=== PATIENT | male | born 1935 | race Two or more races ===

== ENCOUNTER 2017-07-06 07:29 | Inpatient (IN) | payer MEDICARE, OTHER ==
[~2017-07-06] VITALS: Ht 172.7 cm; Wt 70.9 kg
[2017-07-06 08:05] LABS: Basophils # (auto) 0 uL; Basophils % (auto) 0.6 % (0.0-2.0); Eosinophils # (auto) 0.1 uL; Eosinophils % (auto) 2.1 % (0.0-7.0); Hematocrit 36.4 % (41.0-53.0); Hemoglobin 12.3 g/dL (13.5-17.5); Lymphocytes # (auto) 0.9 uL; Mean Corpuscular Hemoglobin 32.8 pg (28.0-32.0); Mean Corpuscular Hgb Conc. 33.8 g/dL (32.0-36.0); Mean Corpuscular Volume 97.3 fL (80.0-100.0); Monocytes # (auto) 0.4 uL; Monocytes % (auto) 7.8 % (0.0-12.0); Neutrophils % (auto) 73.5 % (37.0-80.0); Nucleated Red Blood Cells % 0.1 %; Platelet Count (auto) 163 10^3/uL (140-450); Red Blood Cells 3.75 10^6/uL (4.5-5.90); Red Cell Distribution Width 13.8 % (11.8-14.3); White Blood Cell 5.4 10^3/uL (4.4-10.8)
[2017-07-06 08:11] LABS: INR 1.08 (0.9-1.15); Prothrombin Time 11.8 sec (9.37-12.3)
[2017-07-06 08:14] LABS: Alanine Aminotransferase 42 U/L (16-61); Albumin 3.6 g/dL (3.4-5.0); Anion Gap 10 (5-15); Aspartate Aminotransferase 32 U/L (15-37); BUN/Creatinine Ratio 15.8; Bilirubin, Total 0.5 mg/dL (0.2-1.0); Blood Alcohol < 3.0 mg/dL (0-5); Blood Urea Nitrogen 29 mg/dL (7-18); Calcium 9.1 mg/dL (8.5-10.1); Carbon Dioxide 24 mmol/L (21-32); Chloride 105 mmol/L (98-107); GFR African American 46 mL/min; GFR Non-African American 38 mL/min; Glucose 78 mg/dL (74-106); Sodium 139 mmol/L (136-145); Total Protein 7.2 g/dL (6.4-8.2)
[2017-07-06 08:17] LABS: Alkaline Phosphatase 95 U/L (45-117)
[2017-07-06] MEDS ORDERED: cloNIDine HCL 0.1 MG TAB PO PRN (11:00)
[2017-07-06] MEDS ORDERED: NIFEdipine ER 30 MG TAB PO ONE (11:00)
[2017-07-06] MEDS ORDERED: FUROSEMIDE 20 MG TAB PO ONE (11:00)
[2017-07-06] MEDS ORDERED: POTASSIUM CHLORIDE 8 MEQ TAB PO ONE (11:00)
[2017-07-06] MEDS ORDERED: LISINOPRIL 5 MG TAB PO ONE (11:00)
[2017-07-06] MEDS ORDERED: ACETAMINOPHEN 325 MG TAB PO PRN ×2 (11:15)
[2017-07-06] MEDS ORDERED: MORPHINE SULFATE 4 MG/ML SYR/VIAL IV PRN (11:15)
[2017-07-06] MEDS ORDERED: ASPirin-EC 81 mg tab PO ONE (11:15)
[2017-07-06] MEDS ORDERED: ONDANSETRON HCL 4 MG/2 ML VIAL IV PRN (11:15)
[2017-07-06] MEDS ORDERED: DOCUSATE SOD 100 MG CAP PO PRN (11:15)
[2017-07-06] MEDS ORDERED: LORazepam 2MG/ML-1ML VIAL ONE (12:10)
[2017-07-06] MEDS ORDERED: HALOPERIDOL 1 MG TAB PO PRN (12:30)
[2017-07-06] MEDS ORDERED: LORazepam 2MG/ML-1ML VIAL IV PRN ×2 (12:30→19:30)
[2017-07-06] MEDS: SODIUM CHLOR 0.9% PF (SALINE LOCK) 10ML VIAL IV SCH ×2 (14:04→22:02)
[2017-07-06 19:09] LABS: Urine Bacteria NONE SEEN /hpf (None Seen); Urine Blood Negative /uL (Negative); Urine Mucus FEW (None Seen); Urine Specific Gravity 1.013 (1.001-1.035); Urine WBC 1 /hpf (0 - 3)
[2017-07-06 20:03] LABS: Alcohol, Urine < 3.0 mg/dL (0-5); Amphetamine Screen, Urine NEGATIVE (NEGATIVE); Barbiturate Scree,Urine NEGATIVE (NEGATIVE); Benzodiazephine Screen, Urine NEGATIVE (NEGATIVE); Cannabinoid Screen, Urine NEGATIVE (NEGATIVE); Cocaine Screen, Urine NEGATIVE (NEGATIVE); Opiate Scree,Urine NEGATIVE (NEGATIVE); Phencyclidine Screen, Urine NEGATIVE (NEGATIVE)
[2017-07-06 22:00] VITALS: BP 146/65
[2017-07-06] MEDS: ATORVASTATIN 20 MG TAB PO SCH (22:27)
[2017-07-06] MEDS: FAMOTIDINE 20 MG TAB PO SCH (22:27)
[2017-07-06] MEDS: AMITRIPTYLINE HCL 25 MG TAB PO SCH (22:27)
[2017-07-06 23:00] VITALS: BP 146/65
[2017-07-07] MEDS ORDERED: diphenhdrAMINE HCL 25 MG CAP PO ONE (02:30)
[2017-07-07 05:50] VITALS: BP 140/59
[2017-07-07 06:17] LABS: Basophils # (auto) 0 uL; Basophils % (auto) 0.5 % (0.0-2.0); Eosinophils # (auto) 0.3 uL; Eosinophils % (auto) 7.2 % (0.0-7.0); Hematocrit 37.4 % (41.0-53.0); Hemoglobin 12.9 g/dL (13.5-17.5); Lymphocytes # (auto) 0.9 uL; Lymphocytes % (auto) 18.1 % (10.0-50.0); Mean Corpuscular Hemoglobin 33.4 pg (28.0-32.0); Mean Corpuscular Hgb Conc. 34.4 g/dL (32.0-36.0); Mean Corpuscular Volume 97.2 fL (80.0-100.0); Monocytes # (auto) 0.5 uL; Monocytes % (auto) 11.2 % (0.0-12.0); Nucleated Red Blood Cells % 0.1 %; Platelet Count (auto) 157 10^3/uL (140-450); Red Blood Cells 3.85 10^6/uL (4.5-5.90); Red Cell Distribution Width 13.4 % (11.8-14.3); White Blood Cell 4.8 10^3/uL (4.4-10.8)
[2017-07-07 06:30] LABS: Potassium 4.4 mmol/L (3.5-5.1)
[2017-07-07] MEDS: SODIUM CHLOR 0.9% PF (SALINE LOCK) 10ML VIAL IV SCH (06:36)
[2017-07-07 06:42] LABS: Albumin 3.4 g/dL (3.4-5.0); BUN/Creatinine Ratio 22.8; Bilirubin, Total 0.4 mg/dL (0.2-1.0); Calcium 9.1 mg/dL (8.5-10.1)
[2017-07-07] MEDS ORDERED: hydrALAZINE HCL 25 MG TAB PO PRN (08:30)
[2017-07-07] MEDS ORDERED: MAGNESIUM SULFATE 1GM/100ML 100 ML IV PRN (08:45)
[2017-07-07 09:00] VITALS: BP 114/64
[2017-07-07] MEDS: ASPirin-EC 81 mg tab PO SCH (09:46)
[2017-07-07] MEDS: MULTIPLE VITAMIN TAB PO SCH (09:46)
[2017-07-07] MEDS: NIFEdipine ER 30 MG TAB PO SCH (09:46)
[2017-07-07] MEDS: FAMOTIDINE 20 MG TAB PO SCH ×2 (09:47→22:08)
[2017-07-07] MEDS: LISINOPRIL 5 MG TAB PO SCH (09:47)
[2017-07-07] MEDS: SODIUM CHLORIDE 0.9% 1,000 ML IV SCH (09:47)
[2017-07-07] MEDS ORDERED: FUROSEMIDE 20 MG TAB PO SCH (10:00)
[2017-07-07] MEDS ORDERED: POTASSIUM CHLORIDE 8 MEQ TAB PO SCH (10:00)
[2017-07-07] MEDS ORDERED: FURO20TA PO (11:38)
[2017-07-07] MEDS ORDERED: NIFE30TA76 PO (11:38)
[2017-07-07] MEDS ORDERED: AMIT10TA6 PO (11:38)
[2017-07-07] MEDS ORDERED: LISI2.5T47 PO (11:38)
[2017-07-07 12:35] LABS: Folate (Folic Acid) 10.69 ng/mL (5.38-24)
[2017-07-07 13:00] VITALS: BP 118/70
[2017-07-07] MEDS ORDERED: GADOPENTETATE DIMEGLUMINE (10MMOL/20 ML) VIAL IV ONE (13:52)
[2017-07-07] MEDS ORDERED: HALOPERIDOL 1 MG TAB PO SCH (14:00)
[2017-07-07 17:00] VITALS: BP 141/84
[2017-07-07] MEDS: HALOPERIDOL 1 MG TAB PO PRN (20:29)
[2017-07-07 22:00] VITALS: BP 109/56
[2017-07-07] MEDS: ATORVASTATIN 20 MG TAB PO SCH (22:08)
[2017-07-07] MEDS: AMITRIPTYLINE HCL 25 MG TAB PO SCH (22:08)
[2017-07-08] MEDS: SODIUM CHLORIDE 0.9% 1,000 ML IV SCH ×3 (01:25→19:34)
[2017-07-08 05:00] VITALS: BP 110/62
[2017-07-08 07:25] LABS: BUN/Creatinine Ratio 22.2; Calcium 8.6 mg/dL (8.5-10.1); Magnesium 2.7 mg/dL (1.6-2.6); Potassium 4.3 mmol/L (3.5-5.1)
[2017-07-08 07:55] VITALS: BP 126/67
[2017-07-08 08:00] VITALS: BP 126/67
[2017-07-08] MEDS: LISINOPRIL 5 MG TAB PO SCH (10:58)
[2017-07-08] MEDS: NIFEdipine ER 30 MG TAB PO SCH (10:59)
[2017-07-08] MEDS: FAMOTIDINE 20 MG TAB PO SCH ×2 (11:00→22:00)
[2017-07-08] MEDS: ASPirin-EC 81 mg tab PO SCH (11:00)
[2017-07-08] MEDS: MULTIPLE VITAMIN TAB PO SCH (11:01)
[2017-07-08] MEDS: HALOPERIDOL 1 MG TAB PO PRN (13:54)
[2017-07-08 14:06] VITALS: BP 133/76
[2017-07-08 17:26] VITALS: BP 136/70
[2017-07-08] MEDS ORDERED: LORazepam 2MG/ML-1ML VIAL IV PRN (18:15)
[2017-07-08] MEDS ORDERED: IOHEXOL 300 MG/ML 100ML BOTTLE IJ ONE (19:31)
[2017-07-08 22:00] VITALS: BP 123/65
[2017-07-08] MEDS: ATORVASTATIN 20 MG TAB PO SCH (23:11)
[2017-07-08] MEDS: AMITRIPTYLINE HCL 25 MG TAB PO SCH (23:11)
[2017-07-09] MEDS: HALOPERIDOL 1 MG TAB PO PRN ×2 (00:03→19:01)
[2017-07-09] MEDS: SODIUM CHLORIDE 0.9% 1,000 ML IV SCH ×2 (04:34→15:32)
[2017-07-09 05:00] VITALS: BP 137/71
[2017-07-09 08:00] VITALS: BP 132/69
[2017-07-09 09:04] VITALS: BP 132/69
[2017-07-09] MEDS: FAMOTIDINE 20 MG TAB PO SCH (10:23)
[2017-07-09] MEDS: LISINOPRIL 5 MG TAB PO SCH (10:23)
[2017-07-09] MEDS: ASPirin-EC 81 mg tab PO SCH (10:24)
[2017-07-09] MEDS: MULTIPLE VITAMIN TAB PO SCH (10:24)
[2017-07-09] MEDS: NIFEdipine ER 30 MG TAB PO SCH (10:24)
[2017-07-09] MEDS ORDERED: MIDAZOLAM HCL 1MG/1ML-2 ML VIAL IV ONE (12:45)
[2017-07-09] MEDS ORDERED: fentaNYL CITRATE 100 MCG/2 ML VL IV ONE (12:45)
[2017-07-09] MEDS ORDERED: LIDOCAINE VISCOUS 2% 15ML UD PO ONE (12:45)
[2017-07-09 13:00] VITALS: BP 127/63
[2017-07-09] MEDS ORDERED: MIDAZOLAM HCL 5 MG/ML-1ML VIAL IV ONE (13:00)
[2017-07-09 16:47] VITALS: BP 132/69
[2017-07-09 16:49] VITALS: BP 133/62
== END 2017-07-09 19:20 | disposition home health service (06) | DRG 64 ==
LOC: ER 07:29 → EDBD 07:29 → OVERFLOW 07:30 → WEST WING 22:40
PROVIDERS: ADMIT Internal Medicine; ATTEND Family Medicine
PROC: B24BZZ4 Ultrasonography of Heart with Aorta, Transesophageal (ICD-10-PCS; principal; 2017-07-09)
DX: I63.9 Cerebral infarction, unspecified (principal); G93.6 Cerebral edema; N17.0 Acute kidney failure with tubular necrosis; I67.4 Hypertensive encephalopathy; D63.8 Anemia in other chronic diseases classified elsewhere; G30.9 Alzheimer's disease, unspecified; F02.80 Dementia in other diseases classified elsewhere, unspecified severity, without behavioral disturbance, psychotic disturbance, mood disturbance, and anxiety; F29 Unspecified psychosis not due to a substance or known physiological condition; N18.3 Chronic kidney disease, stage 3 (moderate); I25.10 Atherosclerotic heart disease of native coronary artery without angina pectoris; I12.9 Hypertensive chronic kidney disease with stage 1 through stage 4 chronic kidney disease, or unspecified chronic kidney disease; K59.00 Constipation, unspecified; F41.9 Anxiety disorder, unspecified; I25.2 Old myocardial infarction; Z79.82 Long term (current) use of aspirin; Z79.899 Other long term (current) drug therapy
CPT/HCPCS: 36415; 70450; 70460; 70486; 71046; 80048; 80053; 80307; 80320; 81001; 82607; 82746; 83735; 83880; 84443; 84484; 85025; 85610; 85730; 87086; 92610; 93005; 93306; 93312; 93886; 94761; 95819; 96374; 96375; 97163; 99152; J2250

== ENCOUNTER 2017-08-23 00:15 | Inpatient (IN) | payer MEDICARE, OTHER ==
[2017-08-23] VITALS (7 sets, daily range): BP systolic 144–168; BP diastolic 63–91
[~2017-08-23] VITALS: Ht 188 cm; Wt 84.1 kg
[~2017-08-23 00:15] MED LIST: AMIT10TA6 PO; FURO20TA PO; LISI2.5T47 PO; NIFE30TA76 PO
[2017-08-23] MEDS ORDERED: LISI40TA PO (03:15)
[2017-08-23] MEDS ORDERED: DONE10TA40 PO (03:17)
[2017-08-23] MEDS ORDERED: ONDANSETRON HCL 4 MG/2 ML VIAL IV PRN (03:45)
[2017-08-23] MEDS ORDERED: ACETAMINOPHEN 500 MG TAB PO PRN (03:45)
[2017-08-23] MEDS ORDERED: HYDROcodone-ACET 5/325MG TAB PO PRN (03:45)
[2017-08-23 05:23] LABS: Basophils # (auto) 0 uL; Basophils % (auto) 0.4 % (0.0-2.0); Eosinophils # (auto) 0.1 uL; Eosinophils % (auto) 1.8 % (0.0-7.0); Hematocrit 42.3 % (41.0-53.0); Hemoglobin 14.3 g/dL (13.5-17.5); Lymphocytes # (auto) 1.3 uL; Lymphocytes % (auto) 18.2 % (10.0-50.0); Mean Corpuscular Hemoglobin 33.7 pg (28.0-32.0); Mean Corpuscular Hgb Conc. 33.8 g/dL (32.0-36.0); Mean Corpuscular Volume 99.8 fL (80.0-100.0); Monocytes # (auto) 0.8 uL; Monocytes % (auto) 11.5 % (0.0-12.0); Neutrophils # (auto) 4.7 uL; Neutrophils % (auto) 68.1 % (37.0-80.0); Nucleated Red Blood Cells % 0.1 %; Platelet Count (auto) 128 10^3/uL (140-450); Red Blood Cells 4.24 10^6/uL (4.5-5.90); Red Cell Distribution Width 13.2 % (11.8-14.3); White Blood Cell 6.9 10^3/uL (4.4-10.8)
[2017-08-23 05:30] LABS: Calcium 8.8 mg/dL (8.5-10.1); Potassium 3.7 mmol/L (3.5-5.1)
[2017-08-23 05:32] LABS: BUN/Creatinine Ratio 16.1
[2017-08-23] MEDS: LISINOPRIL 20 MG TAB PO SCH (10:12)
[2017-08-23] MEDS: ASPirin-EC 81 mg tab PO SCH (16:34)
[2017-08-23] MEDS ORDERED: ATORVASTATIN 20 MG TAB PO SCH (22:00)
[2017-08-23] MEDS ORDERED: DONEPEZIL HYDROCHLORIDE 5 MG TAB PO SCH (22:00)
[2017-08-24 04:47] VITALS: BP 136/72
[2017-08-24 08:00] VITALS: BP 155/65
[2017-08-24 09:00] VITALS: BP 155/65
[2017-08-24] MEDS: LISINOPRIL 20 MG TAB PO SCH (11:15)
[2017-08-24] MEDS: ASPirin-EC 81 mg tab PO SCH (11:15)
[2017-08-24 13:00] VITALS: BP 153/72
[2017-08-24] MEDS ORDERED: LEVE500T22 PO (14:55)
[2017-08-24] MEDS ORDERED: ASP81EC PO (14:55)
[2017-08-24] MEDS ORDERED: ATOR20TA50 PO (14:55)
[2017-08-24] MEDS ORDERED: LEVETIRACETAM 500 MG TAB PO ONE (15:00)
[2017-08-24 15:05] LABS: Urine Bacteria NONE SEEN /hpf (None Seen); Urine Blood Negative /uL (Negative); Urine Specific Gravity 1.015 (1.001-1.035); Urine WBC 1 /hpf (0 - 3)
[2017-08-24 16:25] VITALS: BP 152/72
[2017-08-24 17:00] VITALS: BP 118/64
[2017-08-24] MEDS ORDERED: LEVETIRACETAM 500 MG TAB PO SCH (22:00)
== END 2017-08-24 19:25 | disposition home or self-care (01) | DRG 101 ==
LOC: WEST WING 00:15 → TELE-WESTW 08-24 04:22
PROVIDERS: ADMIT Family Medicine; ATTEND Internal Medicine
DX: R56.9 Unspecified convulsions (principal); I69.354 Hemiplegia and hemiparesis following cerebral infarction affecting left non-dominant side; F02.80 Dementia in other diseases classified elsewhere, unspecified severity, without behavioral disturbance, psychotic disturbance, mood disturbance, and anxiety; R00.1 Bradycardia, unspecified; I10 Essential (primary) hypertension; Z79.899 Other long term (current) drug therapy; Z82.3 Family history of stroke; Z86.73 Personal history of transient ischemic attack (TIA), and cerebral infarction without residual deficits; Z81.8 Family history of other mental and behavioral disorders
CPT/HCPCS: 36415; 80048; 81001; 85025; 87081; 92610; 93005; 97163

== ENCOUNTER → 2017-09-29 | Outpatient (CLI) | payer OTHER ==
[~2017-09-29] MED LIST changes: -AMIT10TA6 PO; +ASP81EC PO; +ATOR20TA50 PO; +DONE10TA40 PO; -FURO20TA PO; +LEVE500T22 PO; -LISI2.5T47 PO; +LISI40TA PO; -NIFE30TA76 PO
[2017-09-29 11:04] LABS: Basophils # (auto) 0 uL; Basophils % (auto) 0.4 % (0.0-2.0); Eosinophils # (auto) 0.2 uL; Eosinophils % (auto) 2.6 % (0.0-7.0); Hematocrit 41.6 % (41.0-53.0); Hemoglobin 14.2 g/dL (13.5-17.5); Lymphocytes # (auto) 1.4 uL; Lymphocytes % (auto) 22.2 % (10.0-50.0); Mean Corpuscular Hgb Conc. 34.2 g/dL (32.0-36.0); Mean Corpuscular Volume 99.3 fL (80.0-100.0); Monocytes # (auto) 0.7 uL; Monocytes % (auto) 10.7 % (0.0-12.0); Neutrophils # (auto) 3.9 uL; Neutrophils % (auto) 64.1 % (37.0-80.0); Platelet Count (auto) 144 10^3/uL (140-450); Red Blood Cells 4.19 10^6/uL (4.5-5.90); Red Cell Distribution Width 13.6 % (11.8-14.3); White Blood Cell 6.1 10^3/uL (4.4-10.8)
[2017-09-29 11:05] LABS: Urine Bacteria FEW /hpf (None Seen); Urine Blood Negative /uL (Negative); Urine Mucus FEW (None Seen); Urine Specific Gravity 1.019 (1.001-1.035); Urine WBC 4 /hpf (0 - 3)
[2017-09-29 11:40] LABS: Free T4 (Free Thyroxine) 0.97 ng/dL (0.89-1.76); Prostate Specific Antigen 1.77 ng/mL (0.0-4.0)
[2017-09-29 11:43] LABS: Cholesterol 136 mg/dL (< 200); HDL Cholesterol 85 mg/dL (40-59); LDL Cholesterol 53 mg/dL (< 100); Triglycerides 68 mg/dL (< 150)
== END | disposition home or self-care (01) ==
LOC: LAB 10:33
PROVIDERS: ATTEND Internal Medicine
DX: E03.9 Hypothyroidism, unspecified (principal); E78.00 Pure hypercholesterolemia, unspecified; I12.9 Hypertensive chronic kidney disease with stage 1 through stage 4 chronic kidney disease, or unspecified chronic kidney disease; N18.3 Chronic kidney disease, stage 3 (moderate); Z79.82 Long term (current) use of aspirin
CPT/HCPCS: 36415; 80061; 81001; 84153; 84439; 84443; 85025

== ENCOUNTER 2017-11-08 14:06 | Inpatient (IN) | payer OTHER ==
[~2017-11-08] VITALS: Ht 177.8 cm; Wt 77.5 kg
[2017-11-08] MEDS ORDERED: LIDOCAINE 2% JELLY 11ml (GLYDO) ONE (16:20)
[2017-11-08] MEDS ORDERED: LIDOCAINE 2% JELLY 11ml (GLYDO) UR ONE (16:30)
[2017-11-08 16:57] LABS: Basophils # (auto) 0 uL; Basophils % (auto) 0.4 % (0.0-2.0); Eosinophils # (auto) 0 uL; Eosinophils % (auto) 0.7 % (0.0-7.0); Hemoglobin 14.6 g/dL (13.5-17.5); Lymphocytes # (auto) 1.4 uL; Lymphocytes % (auto) 19.9 % (10.0-50.0); Mean Corpuscular Hemoglobin 33.1 pg (28.0-32.0); Mean Corpuscular Hgb Conc. 33.2 g/dL (32.0-36.0); Mean Corpuscular Volume 99.7 fL (80.0-100.0); Monocytes # (auto) 0.6 uL; Neutrophils # (auto) 4.9 uL; Nucleated Red Blood Cells % 0.1 %; Platelet Count (auto) 158 10^3/uL (140-450); Red Blood Cells 4.42 10^6/uL (4.5-5.90); Red Cell Distribution Width 13.7 % (11.8-14.3); White Blood Cell 6.9 10^3/uL (4.4-10.8)
[2017-11-08 17:06] LABS: Alanine Aminotransferase 28 U/L (16-61); Albumin 3.9 g/dL (3.4-5.0); Anion Gap 9 (5-15); Aspartate Aminotransferase 23 U/L (15-37); BUN/Creatinine Ratio 12.9; Blood Urea Nitrogen 13 mg/dL (7-18); Carbon Dioxide 23 mmol/L (21-32); Chloride 111 mmol/L (98-107); GFR African American 91 mL/min; GFR Non-African American 75 mL/min; Glucose 79 mg/dL (74-106); Potassium 4.4 mmol/L (3.5-5.1); Sodium 143 mmol/L (136-145)
[2017-11-08 17:10] LABS: Alkaline Phosphatase 84 U/L (45-117); Bilirubin, Total 0.6 mg/dL (0.2-1.0); Total Protein 7.7 g/dL (6.4-8.2)
[2017-11-08] MEDS ORDERED: LORazepam 2MG/ML-1ML VIAL ONE (17:27)
[2017-11-08 17:28] LABS: INR 1.05 (0.9-1.15); Partial Thromboplastin Time 31.9 sec (23.78-33.04); Prothrombin Time 11.2 sec (9.27-12.13)
[2017-11-08] MEDS ORDERED: MIDAZOLAM HCL 5 MG/ML-1ML VIAL ONE (17:30)
[2017-11-08] MEDS ORDERED: ETOMIDATE (2MG/ML) 20ML VIAL IV ONE ×2 (17:33→19:30)
[2017-11-08] MEDS ORDERED: SUCCINYLCHOLINE CHLORIDE 20 MG/ML 10ML VIAL IV ONE ×3 (17:34→19:30)
[2017-11-08] MEDS ORDERED: MIDAZOLAM DRIP 50 mg/50mL 50 ML IV ONE (17:44)
[2017-11-08] MEDS: MIDAZOLAM DRIP 50 mg/50mL 50 ML IV SCH (17:45)
[2017-11-08] MEDS: PROPOFOL 100 ML IV SCH (18:29)
[2017-11-08] MEDS ORDERED: LORazepam 2MG/ML-1ML VIAL IV PRN (18:30)
[2017-11-08] MEDS ORDERED: LORazepam 2MG/ML-1ML VIAL IV ONE (18:45)
[2017-11-08] MEDS ORDERED: ONDANSETRON HCL 4 MG/2 ML VIAL IV PRN (18:45)
[2017-11-08] MEDS ORDERED: MIDAZOLAM HCL 5 MG/ML-1ML VIAL IV ONE (18:45)
[2017-11-08] MEDS ORDERED: NITROGLYCERIN 0.4 MG SL TAB SL PRN (18:45)
[2017-11-08] MEDS ORDERED: MORPHINE SULF(PF) 0.5MG/ML 10ML VIAL IV PRN (18:45)
[2017-11-08] MEDS ORDERED: cefTRIAXone 1GM/10ml IVPUSH 10 ML IV ONE (18:45)
[2017-11-08] MEDS ORDERED: VANCOMYCIN PER PHARMACY 0 MG IV SCH (18:45)
[2017-11-08] MEDS ORDERED: FAMOTIDINE (10MG/ML) 2ML VL IV ONE (18:45)
[2017-11-08] MEDS ORDERED: PANTOPRAZOLE 40 MG/10 ML VIAL IV ONE (18:45)
[2017-11-08] MEDS: SODIUM CHLORIDE 0.9% 1,000 ML IV SCH (19:03)
[2017-11-08 20:00] VITALS: BP 147/74
[2017-11-08] MEDS ORDERED: VANCOMYCIN 1GM/250ML 250 ML IV SCH (20:00)
[2017-11-08 20:55] VITALS: BP 147/74
[2017-11-08 21:49] LABS: Urine Bacteria NONE SEEN /hpf (None Seen); Urine Blood 2+ /uL (Negative); Urine Mucus FEW (None Seen); Urine Specific Gravity 1.021 (1.001-1.035); Urine WBC 2 /hpf (0 - 3)
[2017-11-08 22:00] VITALS: BP 160/76
[2017-11-08] MEDS ORDERED: LEVETIRACETAM 500 MG/5ML INJ IV ONE (22:08)
[2017-11-08] MEDS: LEVETIRACETAM INJ 500 MG in D5W 5% 100 ML IV SCH (22:16)
[2017-11-09] VITALS (76 sets, daily range): BP systolic 118–176; BP diastolic 46–106
[2017-11-09] MEDS: ENALAPRILAT 1.25 MG/ML-1ML VIAL IV PRN ×2 (03:37→13:27)
[2017-11-09 05:51] LABS: Basophils # (auto) 0 uL; Basophils % (auto) 0.4 % (0.0-2.0); Eosinophils # (auto) 0.1 uL; Eosinophils % (auto) 1.3 % (0.0-7.0); Hematocrit 37.2 % (41.0-53.0); Hemoglobin 12.5 g/dL (13.5-17.5); Lymphocytes % (auto) 13.3 % (10.0-50.0); Mean Corpuscular Hemoglobin 33.6 pg (28.0-32.0); Mean Corpuscular Hgb Conc. 33.6 g/dL (32.0-36.0); Mean Corpuscular Volume 99.8 fL (80.0-100.0); Monocytes % (auto) 13.4 % (0.0-12.0); Neutrophils # (auto) 5.3 uL; Neutrophils % (auto) 71.6 % (37.0-80.0); Nucleated Red Blood Cells % 0.1 %; Platelet Count (auto) 123 10^3/uL (140-450); Red Blood Cells 3.73 10^6/uL (4.5-5.90); Red Cell Distribution Width 13.5 % (11.8-14.3); White Blood Cell 7.4 10^3/uL (4.4-10.8)
[2017-11-09] MEDS: MIDAZOLAM DRIP 50 mg/50mL 50 ML IV SCH ×3 (06:11→22:25)
[2017-11-09 06:22] LABS: Potassium 3.4 mmol/L (3.5-5.1)
[2017-11-09 06:34] LABS: Albumin 3.1 g/dL (3.4-5.0); BUN/Creatinine Ratio 11.8; Calcium 8.2 mg/dL (8.5-10.1)
[2017-11-09 06:37] LABS: Bilirubin, Total 0.9 mg/dL (0.2-1.0); Total Protein 6.2 g/dL (6.4-8.2)
[2017-11-09] MEDS ORDERED: cefTRIAXone 1GM/10ml IVPUSH 10 ML IV SCH (09:00)
[2017-11-09] MEDS: LEVOTHYROXINE SODIUM 100 MCG/5 ML INJ IV SCH (09:29)
[2017-11-09] MEDS: PANTOPRAZOLE 40 MG/10 ML VIAL IV SCH (09:29)
[2017-11-09] MEDS: ENOXAPARIN SOD 40 MG/0.4 ML SYRINGE SC SCH (09:30)
[2017-11-09] MEDS: LEVETIRACETAM INJ 500 MG in D5W 5% 100 ML IV SCH ×2 (09:43→22:25)
[2017-11-09] MEDS ORDERED: FAMOTIDINE (10MG/ML) 2ML VL IV SCH (10:00)
[2017-11-09] MEDS: PROPOFOL 100 ML IV SCH (11:19)
[2017-11-09] MEDS ORDERED: AMLO5TAB2 PO (11:36)
[2017-11-09] MEDS ORDERED: LEVO-140 PO (11:36)
[2017-11-09] MEDS ORDERED: TAMS0.4C36 PO (11:36)
[2017-11-09] MEDS ORDERED: POTASSIUM CHL 10% (20 MEQ/15ML) 15ml ORAL SOLN PO ONE (14:45)
[2017-11-09] MEDS: amLODIPine BESYLATE 5 MG TAB PO SCH (15:22)
[2017-11-09] MEDS: LISINOPRIL 20 MG TAB PO SCH (15:23)
[2017-11-09] MEDS ORDERED: HALOPERIDOL LACTATE 5 MG/ML INJ VIAL IM PRN (18:30)
[2017-11-09] MEDS: SODIUM CHLORIDE 0.9% 1,000 ML IV SCH (21:00)
[2017-11-10] VITALS (100 sets, daily range): BP systolic 113–176; BP diastolic 47–95
[2017-11-10] MEDS: MIDAZOLAM DRIP 50 mg/50mL 50 ML IV SCH ×4 (04:43→22:00)
[2017-11-10] MEDS: SODIUM CHLORIDE 0.9% 1,000 ML IV SCH ×3 (07:30→20:34)
[2017-11-10] MEDS: LISINOPRIL 20 MG TAB PO SCH (09:13)
[2017-11-10] MEDS: amLODIPine BESYLATE 5 MG TAB PO SCH (09:14)
[2017-11-10] MEDS: PANTOPRAZOLE 40 MG/10 ML VIAL IV SCH (09:56)
[2017-11-10] MEDS: ENOXAPARIN SOD 40 MG/0.4 ML SYRINGE SC SCH (09:56)
[2017-11-10] MEDS: LEVOTHYROXINE SODIUM 100 MCG/5 ML INJ IV SCH (09:56)
[2017-11-10] MEDS ORDERED: POTASSIUM CHL 10% (20 MEQ/15ML) 15ml ORAL SOLN NG SCH (10:00)
[2017-11-10] MEDS ORDERED: POTASSIUM CHL 20 Meq TABLET PO SCH (10:00)
[2017-11-10] MEDS: LEVETIRACETAM INJ 500 MG in D5W 5% 100 ML IV SCH ×2 (10:21→22:00)
[2017-11-10] MEDS: PROPOFOL 100 ML IV SCH (18:29)
[2017-11-10] MEDS: POTASSIUM CHL 10% (20 MEQ/15ML) 15ml ORAL SOLN GT SCH (22:00)
[2017-11-11] VITALS (75 sets, daily range): BP systolic 118–172; BP diastolic 51–85
[2017-11-11] MEDS: amLODIPine BESYLATE 5 MG TAB PO SCH (09:46)
[2017-11-11] MEDS: POTASSIUM CHL 10% (20 MEQ/15ML) 15ml ORAL SOLN GT SCH ×2 (09:46→22:00)
[2017-11-11] MEDS: PANTOPRAZOLE 40 MG/10 ML VIAL IV SCH (09:46)
[2017-11-11] MEDS: LEVOTHYROXINE SODIUM 100 MCG/5 ML INJ IV SCH (09:46)
[2017-11-11] MEDS: ENOXAPARIN SOD 40 MG/0.4 ML SYRINGE SC SCH (09:47)
[2017-11-11] MEDS: LISINOPRIL 20 MG TAB PO SCH (09:47)
[2017-11-11] MEDS: LEVETIRACETAM INJ 500 MG in D5W 5% 100 ML IV SCH ×2 (10:09→22:00)
[2017-11-11] MEDS: ENALAPRILAT 1.25 MG/ML-1ML VIAL IV PRN (14:27)
[2017-11-11] MEDS ORDERED: MIDAZOLAM HCL 1MG/1ML-2 ML VIAL IV PRN (16:45)
[2017-11-11] MEDS: PROPOFOL 100 ML IV SCH (18:29)
[2017-11-11] MEDS: SODIUM CHLORIDE 0.9% 1,000 ML IV SCH (20:51)
[2017-11-12] VITALS (57 sets, daily range): BP systolic 114–165; BP diastolic 54–84
[2017-11-12 08:51] LABS: Basophils # (auto) 0 uL; Basophils % (auto) 0.1 % (0.0-2.0); Eosinophils # (auto) 0 uL; Eosinophils % (auto) 0.3 % (0.0-7.0); Hematocrit 37.2 % (41.0-53.0); Hemoglobin 12.7 g/dL (13.5-17.5); Lymphocytes # (auto) 0.5 uL; Lymphocytes % (auto) 5.9 % (10.0-50.0); Mean Corpuscular Hemoglobin 33.7 pg (28.0-32.0); Mean Corpuscular Hgb Conc. 34.2 g/dL (32.0-36.0); Mean Corpuscular Volume 98.5 fL (80.0-100.0); Monocytes # (auto) 1.3 uL; Monocytes % (auto) 14.8 % (0.0-12.0); Neutrophils # (auto) 7.2 uL; Neutrophils % (auto) 78.9 % (37.0-80.0); Platelet Count (auto) 123 10^3/uL (140-450); Red Blood Cells 3.78 10^6/uL (4.5-5.90); Red Cell Distribution Width 13.1 % (11.8-14.3); White Blood Cell 9.1 10^3/uL (4.4-10.8)
[2017-11-12 09:11] LABS: Albumin 2.6 g/dL (3.4-5.0); Potassium 3.7 mmol/L (3.5-5.1)
[2017-11-12 09:14] LABS: BUN/Creatinine Ratio 18.8
[2017-11-12 09:17] LABS: Bilirubin, Total 1.3 mg/dL (0.2-1.0); Total Protein 6.3 g/dL (6.4-8.2)
[2017-11-12] MEDS: amLODIPine BESYLATE 5 MG TAB PO SCH (09:42)
[2017-11-12] MEDS: PANTOPRAZOLE 40 MG/10 ML VIAL IV SCH (09:43)
[2017-11-12] MEDS: LISINOPRIL 20 MG TAB PO SCH (09:43)
[2017-11-12] MEDS: LEVETIRACETAM INJ 500 MG in D5W 5% 100 ML IV SCH ×2 (09:43→21:55)
[2017-11-12] MEDS: POTASSIUM CHL 10% (20 MEQ/15ML) 15ml ORAL SOLN GT SCH ×2 (09:43→21:54)
[2017-11-12] MEDS: LEVOTHYROXINE SODIUM 100 MCG/5 ML INJ IV SCH (09:43)
[2017-11-12] MEDS: ENOXAPARIN SOD 40 MG/0.4 ML SYRINGE SC SCH (09:44)
[2017-11-12] MEDS: SODIUM CHLORIDE 0.9% 1,000 ML IV SCH ×2 (12:00→23:03)
[2017-11-12] MEDS: PROPOFOL 100 ML IV SCH (17:56)
[2017-11-12] MEDS ORDERED: ACETAMINOPHEN 650 mg PER 20 mL UD PO PRN (23:45)
[2017-11-13] VITALS (81 sets, daily range): BP systolic 133–188; BP diastolic 58–87
[2017-11-13] MEDS ORDERED: MORPHINE SULF(PF) 0.5MG/ML 10ML VIAL IV ONE (08:30)
[2017-11-13] MEDS ORDERED: MORPHINE SULF(PF) 0.5MG/ML 10ML VIAL IV PRN (08:30)
[2017-11-13] MEDS: LEVETIRACETAM INJ 500 MG in D5W 5% 100 ML IV SCH ×2 (10:03→21:34)
[2017-11-13] MEDS: POTASSIUM CHL 10% (20 MEQ/15ML) 15ml ORAL SOLN GT SCH (10:04)
[2017-11-13] MEDS: LEVOTHYROXINE SODIUM 100 MCG/5 ML INJ IV SCH (10:04)
[2017-11-13] MEDS: ENOXAPARIN SOD 40 MG/0.4 ML SYRINGE SC SCH (10:04)
[2017-11-13] MEDS: PANTOPRAZOLE 40 MG/10 ML VIAL IV SCH (10:04)
[2017-11-13] MEDS: amLODIPine BESYLATE 5 MG TAB PO SCH (10:05)
[2017-11-13] MEDS: LISINOPRIL 20 MG TAB PO SCH (10:05)
[2017-11-13 10:52] LABS: Basophils # (auto) 0 uL; Basophils % (auto) 0.3 % (0.0-2.0); Eosinophils # (auto) 0.2 uL; Eosinophils % (auto) 1.7 % (0.0-7.0); Hematocrit 37.4 % (41.0-53.0); Hemoglobin 12.8 g/dL (13.5-17.5); Lymphocytes # (auto) 0.7 uL; Lymphocytes % (auto) 7.2 % (10.0-50.0); Mean Corpuscular Hemoglobin 33.7 pg (28.0-32.0); Mean Corpuscular Hgb Conc. 34.1 g/dL (32.0-36.0); Mean Corpuscular Volume 98.7 fL (80.0-100.0); Monocytes # (auto) 1.3 uL; Monocytes % (auto) 13.7 % (0.0-12.0); Neutrophils # (auto) 7.3 uL; Neutrophils % (auto) 77.1 % (37.0-80.0); Platelet Count (auto) 138 10^3/uL (140-450); Red Blood Cells 3.79 10^6/uL (4.5-5.90); White Blood Cell 9.4 10^3/uL (4.4-10.8)
[2017-11-13 11:04] LABS: BUN/Creatinine Ratio 20.4; Calcium 8.3 mg/dL (8.5-10.1); Potassium 3.5 mmol/L (3.5-5.1)
[2017-11-13] MEDS: TAMSULOSIN HYDROCHLORIDE 0.4 MG CAP PO SCH (17:50)
[2017-11-14] VITALS (21 sets, daily range): BP systolic 145–158; BP diastolic 59–82
[2017-11-14] MEDS: LEVOTHYROXINE SODIUM 100 MCG TAB PO SCH (06:38)
[2017-11-14] MEDS: ENOXAPARIN SOD 40 MG/0.4 ML SYRINGE SC SCH (10:06)
[2017-11-14] MEDS: LEVETIRACETAM INJ 500 MG in D5W 5% 100 ML IV SCH (10:06)
[2017-11-14] MEDS: amLODIPine BESYLATE 5 MG TAB PO SCH (10:09)
[2017-11-14] MEDS: LISINOPRIL 20 MG TAB PO SCH (10:09)
[2017-11-14] MEDS ORDERED: ASPirin 81 mg TAB PO ONE (12:45)
[2017-11-14] MEDS: TAMSULOSIN HYDROCHLORIDE 0.4 MG CAP PO SCH (17:54)
[2017-11-15] MEDS: LEVETIRACETAM INJ 500 MG in D5W 5% 100 ML IV SCH ×2 (00:12→10:55)
[2017-11-15] MEDS: LEVOTHYROXINE SODIUM 100 MCG TAB PO SCH (06:41)
[2017-11-15 07:15] LABS: Basophils # (auto) 0 uL; Basophils % (auto) 0.3 % (0.0-2.0); Eosinophils # (auto) 0.1 uL; Lymphocytes # (auto) 0.6 uL; Lymphocytes % (auto) 7.4 % (10.0-50.0); Monocytes # (auto) 1.2 uL; Neutrophils # (auto) 6.5 uL; Red Blood Cells 3.79 10^6/uL (4.5-5.90); White Blood Cell 8.5 10^3/uL (4.4-10.8)
[2017-11-15 07:16] LABS: Eosinophils % (auto) 1.3 % (0.0-7.0); Hematocrit 36.4 % (41.0-53.0); Mean Corpuscular Hemoglobin 34.3 pg (28.0-32.0); Mean Corpuscular Hgb Conc. 35.7 g/dL (32.0-36.0); Mean Corpuscular Volume 96.1 fL (80.0-100.0); Monocytes % (auto) 13.9 % (0.0-12.0); Neutrophils % (auto) 77.1 % (37.0-80.0); Platelet Count (auto) 171 10^3/uL (140-450); Red Cell Distribution Width 12.8 % (11.8-14.3)
[2017-11-15 09:00] VITALS: BP 141/75
[2017-11-15] MEDS: ASPirin 81 mg TAB PO SCH (10:56)
[2017-11-15] MEDS: LISINOPRIL 20 MG TAB PO SCH (10:57)
[2017-11-15] MEDS: amLODIPine BESYLATE 5 MG TAB PO SCH (10:57)
[2017-11-15] MEDS: ENOXAPARIN SOD 40 MG/0.4 ML SYRINGE SC SCH (10:58)
[2017-11-15 13:00] VITALS: BP 145/66
[2017-11-15] MEDS ORDERED: POTASSIUM CHL 20 Meq TABLET PO ONE (14:45)
[2017-11-15 16:43] VITALS: BP 124/60
[2017-11-15] MEDS: TAMSULOSIN HYDROCHLORIDE 0.4 MG CAP PO SCH (18:42)
[2017-11-15] MEDS: LEVETIRACETAM 500 MG TAB PO SCH (21:28)
[2017-11-15 21:44] VITALS: BP 150/88
[2017-11-15 21:46] VITALS: BP 133/75
[2017-11-16 05:00] VITALS: BP 140/69
[2017-11-16] MEDS: LEVOTHYROXINE SODIUM 100 MCG TAB PO SCH (05:44)
[2017-11-16 07:37] LABS: Basophils # (auto) 0 uL; Eosinophils # (auto) 0.2 uL; Nucleated Red Blood Cells % 0.1 %
[2017-11-16 07:40] LABS: Basophils % (auto) 0.6 % (0.0-2.0); Eosinophils % (auto) 3.2 % (0.0-7.0); Hematocrit 37.5 % (41.0-53.0); Hemoglobin 13.1 g/dL (13.5-17.5); Lymphocytes # (auto) 0.9 uL; Lymphocytes % (auto) 12.1 % (10.0-50.0); Mean Corpuscular Hemoglobin 33.9 pg (28.0-32.0); Mean Corpuscular Hgb Conc. 34.9 g/dL (32.0-36.0); Mean Corpuscular Volume 97.2 fL (80.0-100.0); Monocytes % (auto) 14.1 % (0.0-12.0); Neutrophils # (auto) 5.1 uL; Platelet Count (auto) 190 10^3/uL (140-450); Red Blood Cells 3.86 10^6/uL (4.5-5.90); White Blood Cell 7.3 10^3/uL (4.4-10.8)
[2017-11-16 08:00] LABS: BUN/Creatinine Ratio 28.6; Calcium 8.7 mg/dL (8.5-10.1); Magnesium 2.7 mg/dL (1.6-2.6); Potassium 3.3 mmol/L (3.5-5.1)
[2017-11-16] MEDS: LEVETIRACETAM 500 MG TAB PO SCH ×2 (08:57→21:42)
[2017-11-16] MEDS: ASPirin 81 mg TAB PO SCH (08:57)
[2017-11-16] MEDS: amLODIPine BESYLATE 5 MG TAB PO SCH (08:58)
[2017-11-16] MEDS: ENOXAPARIN SOD 40 MG/0.4 ML SYRINGE SC SCH (08:58)
[2017-11-16] MEDS: LISINOPRIL 20 MG TAB PO SCH (08:58)
[2017-11-16 09:00] VITALS: BP_SYST 135; BP_SYST 169; BP_DIAS 61; BP_DIAS 88
[2017-11-16 13:26] VITALS: BP 127/58
[2017-11-16 16:49] VITALS: BP 120/59
[2017-11-16] MEDS: TAMSULOSIN HYDROCHLORIDE 0.4 MG CAP PO SCH (18:15)
[2017-11-16 22:00] VITALS: BP 125/68
[2017-11-17 05:00] VITALS: BP 131/65
[2017-11-17] MEDS: LEVOTHYROXINE SODIUM 100 MCG TAB PO SCH (06:26)
[2017-11-17 09:00] VITALS: BP 133/70
[2017-11-17] MEDS: ENOXAPARIN SOD 40 MG/0.4 ML SYRINGE SC SCH (10:14)
[2017-11-17] MEDS: LEVETIRACETAM 500 MG TAB PO SCH ×2 (10:14→21:42)
[2017-11-17] MEDS: ASPirin 81 mg TAB PO SCH (10:14)
[2017-11-17] MEDS: amLODIPine BESYLATE 5 MG TAB PO SCH (10:15)
[2017-11-17] MEDS: LISINOPRIL 20 MG TAB PO SCH (10:15)
[2017-11-17 12:56] VITALS: BP 130/63
[2017-11-17] MEDS: TAMSULOSIN HYDROCHLORIDE 0.4 MG CAP PO SCH (16:33)
[2017-11-17] MEDS: POTASSIUM CHL 20 Meq TABLET PO SCH (16:33)
[2017-11-17 17:00] VITALS: BP 121/87
[2017-11-17 22:00] VITALS: BP 130/61
[2017-11-18 05:00] VITALS: BP 138/69
[2017-11-18] MEDS: LEVOTHYROXINE SODIUM 100 MCG TAB PO SCH (06:29)
[2017-11-18 09:00] VITALS: BP 123/65
[2017-11-18] MEDS: amLODIPine BESYLATE 5 MG TAB PO SCH (10:00)
[2017-11-18] MEDS: POTASSIUM CHL 20 Meq TABLET PO SCH (10:00)
[2017-11-18] MEDS: LISINOPRIL 20 MG TAB PO SCH (10:00)
[2017-11-18] MEDS: ENOXAPARIN SOD 40 MG/0.4 ML SYRINGE SC SCH (10:00)
[2017-11-18] MEDS: LEVETIRACETAM 500 MG TAB PO SCH ×2 (10:00→21:32)
[2017-11-18] MEDS: ASPirin 81 mg TAB PO SCH (10:00)
[2017-11-18 13:00] VITALS: BP 140/68
[2017-11-18 17:00] VITALS: BP 125/72
[2017-11-18] MEDS: TAMSULOSIN HYDROCHLORIDE 0.4 MG CAP PO SCH (18:00)
[2017-11-18 21:00] VITALS: BP 135/67
[2017-11-18 22:00] VITALS: BP 135/67
[2017-11-19 05:00] VITALS: BP 135/65
[2017-11-19] MEDS: LEVOTHYROXINE SODIUM 100 MCG TAB PO SCH (06:29)
[2017-11-19 09:08] VITALS: BP 127/66
[2017-11-19] MEDS: ENOXAPARIN SOD 40 MG/0.4 ML SYRINGE SC SCH (10:00)
[2017-11-19 13:00] VITALS: BP 122/66
[2017-11-19] MEDS: ASPirin 81 mg TAB PO SCH (13:18)
[2017-11-19] MEDS: POTASSIUM CHL 20 Meq TABLET PO SCH (13:19)
[2017-11-19] MEDS: LEVETIRACETAM 500 MG TAB PO SCH ×2 (13:19→21:45)
[2017-11-19] MEDS: amLODIPine BESYLATE 5 MG TAB PO SCH (13:20)
[2017-11-19] MEDS: LISINOPRIL 20 MG TAB PO SCH (13:20)
[2017-11-19 16:57] VITALS: BP 119/68
[2017-11-19] MEDS: TAMSULOSIN HYDROCHLORIDE 0.4 MG CAP PO SCH (18:00)
[2017-11-19 21:27] VITALS: BP 117/72
[2017-11-20] MEDS: HALOPERIDOL LACTATE 5 MG/ML INJ VIAL IM PRN (02:06)
[2017-11-20 05:00] VITALS: BP 133/66
[2017-11-20] MEDS: LEVOTHYROXINE SODIUM 100 MCG TAB PO SCH (06:18)
[2017-11-20 08:58] LABS: Basophils # (auto) 0.1 uL; Basophils % (auto) 0.9 % (0.0-2.0); Eosinophils # (auto) 0.2 uL; Eosinophils % (auto) 2.2 % (0.0-7.0); Hematocrit 38.5 % (41.0-53.0); Hemoglobin 13.1 g/dL (13.5-17.5); Lymphocytes # (auto) 0.8 uL; Mean Corpuscular Hemoglobin 33.4 pg (28.0-32.0); Mean Corpuscular Volume 98.3 fL (80.0-100.0); Monocytes # (auto) 0.4 uL; Monocytes % (auto) 5.2 % (0.0-12.0); Neutrophils # (auto) 6.1 uL; Neutrophils % (auto) 80.7 % (37.0-80.0); Platelet Count (auto) 259 10^3/uL (140-450); Red Blood Cells 3.92 10^6/uL (4.5-5.90); Red Cell Distribution Width 12.8 % (11.8-14.3); White Blood Cell 7.6 10^3/uL (4.4-10.8)
[2017-11-20 09:00] VITALS: BP 134/56
[2017-11-20 09:10] LABS: BUN/Creatinine Ratio 22.4; Calcium 8.5 mg/dL (8.5-10.1); Potassium 4.1 mmol/L (3.5-5.1)
[2017-11-20] MEDS: POTASSIUM CHL 20 Meq TABLET PO SCH (10:45)
[2017-11-20] MEDS: ENOXAPARIN SOD 40 MG/0.4 ML SYRINGE SC SCH (10:45)
[2017-11-20] MEDS: ASPirin 81 mg TAB PO SCH (10:45)
[2017-11-20] MEDS: LEVETIRACETAM 500 MG TAB PO SCH ×2 (10:45→21:23)
[2017-11-20] MEDS: amLODIPine BESYLATE 5 MG TAB PO SCH (10:46)
[2017-11-20] MEDS: LISINOPRIL 20 MG TAB PO SCH (10:46)
[2017-11-20 13:00] VITALS: BP 124/76
[2017-11-20 16:17] VITALS: BP 114/69
[2017-11-20] MEDS: TAMSULOSIN HYDROCHLORIDE 0.4 MG CAP PO SCH (17:17)
[2017-11-20 21:49] VITALS: BP 133/64
[2017-11-21] MEDS: HALOPERIDOL LACTATE 5 MG/ML INJ VIAL IM PRN (01:19)
[2017-11-21 05:00] VITALS: BP 129/63
[2017-11-21] MEDS: LEVOTHYROXINE SODIUM 100 MCG TAB PO SCH (06:27)
[2017-11-21 09:00] VITALS: BP_SYST 133; BP_SYST 135; BP_DIAS 67
[2017-11-21] MEDS: LEVETIRACETAM 500 MG TAB PO SCH ×2 (10:07→21:25)
[2017-11-21] MEDS: POTASSIUM CHL 20 Meq TABLET PO SCH (10:07)
[2017-11-21] MEDS: ENOXAPARIN SOD 40 MG/0.4 ML SYRINGE SC SCH (10:07)
[2017-11-21] MEDS: ASPirin 81 mg TAB PO SCH (10:07)
[2017-11-21] MEDS: LISINOPRIL 20 MG TAB PO SCH (10:08)
[2017-11-21] MEDS: amLODIPine BESYLATE 5 MG TAB PO SCH (10:08)
[2017-11-21 13:00] VITALS: BP 128/70
[2017-11-21] MEDS: TAMSULOSIN HYDROCHLORIDE 0.4 MG CAP PO SCH (17:42)
[2017-11-21 17:45] VITALS: BP 124/69
[2017-11-21 21:15] VITALS: BP 118/56
[2017-11-22] MEDS: HALOPERIDOL LACTATE 5 MG/ML INJ VIAL IM PRN (01:52)
[2017-11-22 05:06] VITALS: BP 134/67
[2017-11-22] MEDS: LEVOTHYROXINE SODIUM 100 MCG TAB PO SCH (06:27)
[2017-11-22 09:00] VITALS: BP 117/63
[2017-11-22] MEDS: POTASSIUM CHL 20 Meq TABLET PO SCH (10:18)
[2017-11-22] MEDS: ASPirin 81 mg TAB PO SCH (10:18)
[2017-11-22] MEDS: LISINOPRIL 20 MG TAB PO SCH (10:19)
[2017-11-22] MEDS: ENOXAPARIN SOD 40 MG/0.4 ML SYRINGE SC SCH (10:20)
[2017-11-22] MEDS: LEVETIRACETAM 500 MG TAB PO SCH (10:20)
[2017-11-22] MEDS: amLODIPine BESYLATE 5 MG TAB PO SCH (10:20)
[2017-11-22 12:00] VITALS: BP 116/58
[2017-11-22 15:00] VITALS: BP 120/60
[2017-11-22] MEDS: TAMSULOSIN HYDROCHLORIDE 0.4 MG CAP PO SCH (18:23)
== END 2017-11-22 19:54 | disposition home health service (06) | DRG 207 ==
LOC: EDBD 14:06 → ER 14:11 → OVERFLOW 14:12 → ICU WEST 11-09 05:02 → TELE-WESTW 11-14 15:09
PROVIDERS: ADMIT Internal Medicine; ATTEND Internal Medicine Pulmonary Disease
PROC: 5A1955Z Respiratory Ventilation, Greater than 96 Consecutive Hours (ICD-10-PCS; principal; 2017-11-08)
PROC: 0BH17EZ Insertion of Endotracheal Airway into Trachea, Via Natural or Artificial Opening (ICD-10-PCS; 2017-11-08)
DX: J96.00 Acute respiratory failure, unspecified whether with hypoxia or hypercapnia (principal); G92 Toxic encephalopathy; E44.0 Moderate protein-calorie malnutrition; G40.901 Epilepsy, unspecified, not intractable, with status epilepticus; E03.9 Hypothyroidism, unspecified; E78.5 Hyperlipidemia, unspecified; E87.6 Hypokalemia; F02.80 Dementia in other diseases classified elsewhere, unspecified severity, without behavioral disturbance, psychotic disturbance, mood disturbance, and anxiety; G30.9 Alzheimer's disease, unspecified; I12.9 Hypertensive chronic kidney disease with stage 1 through stage 4 chronic kidney disease, or unspecified chronic kidney disease; I25.10 Atherosclerotic heart disease of native coronary artery without angina pectoris; M11.252 Other chondrocalcinosis, left hip; M11.251 Other chondrocalcinosis, right hip; N18.2 Chronic kidney disease, stage 2 (mild); N40.0 Benign prostatic hyperplasia without lower urinary tract symptoms; S09.90XA Unspecified injury of head, initial encounter; I70.0 Atherosclerosis of aorta; W06.XXXA Fall from bed, initial encounter; S70.02XA Contusion of left hip, initial encounter; Z79.82 Long term (current) use of aspirin; I25.2 Old myocardial infarction; Z79.899 Other long term (current) drug therapy; Z82.3 Family history of stroke; Z86.73 Personal history of transient ischemic attack (TIA), and cerebral infarction without residual deficits; Y93.89 Activity, other specified; Y92.092 Bedroom in other non-institutional residence as the place of occurrence of the external cause; Y99.8 Other external cause status; Z68.24 Body mass index [BMI] 24.0-24.9, adult
CPT/HCPCS: 31500; 36415; 36600; 70450; 71045; 72125; 72192; 80048; 80053; 80202; 81001; 82542; 82805; 82962; 83735; 83880; 84132; 84443; 84484; 84550; 85025; 85610; 85730; 86431; 87040; 87070; 87081; 87086; 87205; 92610; 93886; 93970; 94002; 94003; 94640; 95819; 96365; 96375; 97110; 97116; 97163; 97530; 99291; C9113; G0378; J0330; J2250; J2704; J3490; J7060

== ENCOUNTER → 2018-04-13 | Outpatient (CLI) | payer OTHER ==
[~2018-04-13] MED LIST changes: +AMLO5TAB13 PO; -DONE10TA40 PO; +LEVO-140 PO; +TAMS0.4C36 PO
[2018-04-13 12:04] LABS: Basophils # (auto) 0 uL; Basophils % (auto) 0.6 % (0.0-2.0); Eosinophils # (auto) 0.2 uL; Eosinophils % (auto) 3.2 % (0.0-7.0); Hematocrit 42.6 % (41.0-53.0); Hemoglobin 14.5 g/dL (13.5-17.5); Lymphocytes # (auto) 1.2 uL; Lymphocytes % (auto) 20.9 % (10.0-50.0); Mean Corpuscular Hemoglobin 33.9 pg (28.0-32.0); Mean Corpuscular Hgb Conc. 34.1 g/dL (32.0-36.0); Mean Corpuscular Volume 99.3 fL (80.0-100.0); Monocytes # (auto) 0.6 uL; Monocytes % (auto) 10.2 % (0.0-12.0); Neutrophils # (auto) 3.9 uL; Neutrophils % (auto) 65.1 % (37.0-80.0); Platelet Count (auto) 159 10^3/uL (140-450); Red Blood Cells 4.29 10^6/uL (4.5-5.90); Red Cell Distribution Width 12.6 % (11.8-14.3)
[2018-04-13 12:28] LABS: Albumin 3.7 g/dL (3.4-5.0); BUN/Creatinine Ratio 13.9; Calcium 8.8 mg/dL (8.5-10.1)
[2018-04-13 12:30] LABS: Bilirubin, Total 0.7 mg/dL (0.2-1.0); Total Protein 7.7 g/dL (6.4-8.2)
== END | disposition home or self-care (01) ==
LOC: LAB 11:08
PROVIDERS: ATTEND Internal Medicine
DX: D64.9 Anemia, unspecified (principal); G40.209 Localization-related (focal) (partial) symptomatic epilepsy and epileptic syndromes with complex partial seizures, not intractable, without status epilepticus; R73.01 Impaired fasting glucose
CPT/HCPCS: 36415; 80053; 83036; 83540; 85025

== ENCOUNTER → 2018-10-03 | Outpatient (CLI) | payer OTHER ==
[2018-10-03 11:39] LABS: Basophils # (auto) 0 uL; Basophils % (auto) 0.7 % (0.0-2.0); Eosinophils # (auto) 0.1 uL; Hemoglobin 14.4 g/dL (13.5-17.5); Lymphocytes # (auto) 1.2 uL; Mean Corpuscular Hemoglobin 34.3 pg (28.0-32.0); Monocytes # (auto) 0.5 uL; Red Cell Distribution Width 13.1 % (11.8-14.3); White Blood Cell 5.7 10^3/uL (4.4-10.8)
[2018-10-03 11:41] LABS: Eosinophils % (auto) 2.6 % (0.0-7.0); Hematocrit 41.8 % (41.0-53.0); Lymphocytes % (auto) 20.6 % (10.0-50.0); Mean Corpuscular Hgb Conc. 34.5 g/dL (32.0-36.0); Mean Corpuscular Volume 99.5 fL (80.0-100.0); Monocytes % (auto) 8.2 % (0.0-12.0); Neutrophils # (auto) 3.9 uL; Neutrophils % (auto) 67.9 % (37.0-80.0); Platelet Count (auto) 163 10^3/uL (140-450)
[2018-10-03 12:32] LABS: Potassium 3.6 mmol/L (3.5-5.1)
[2018-10-03 12:44] LABS: Albumin 3.7 g/dL (3.4-5.0); BUN/Creatinine Ratio 20.8; Bilirubin, Total 0.5 mg/dL (0.2-1.0); Calcium 8.7 mg/dL (8.5-10.1); Total Protein 7.4 g/dL (6.4-8.2)
[2018-10-03 14:32] LABS: Free T4 (Free Thyroxine) 1.24 ng/dL (0.89-1.76); Prostate Specific Antigen 1.52 ng/mL (0.0-4.0)
[2018-10-04 13:53] LABS: Folate (Folic Acid) 18.39 ng/mL (5.38-24)
== END | disposition home or self-care (01) ==
LOC: LAB 09:50
PROVIDERS: ATTEND Internal Medicine
DX: F03.90 Unspecified dementia, unspecified severity, without behavioral disturbance, psychotic disturbance, mood disturbance, and anxiety (principal); I10 Essential (primary) hypertension; Z84.2 Family history of other diseases of the genitourinary system
CPT/HCPCS: 36415; 80053; 80061; 82607; 82746; 84153; 84439; 84443; 85025; 85652; 86592

== ENCOUNTER 2019-02-23 09:38 | Inpatient (IN) | payer OTHER ==
[~2019-02-23] VITALS: Ht 182.9 cm; Wt 74.4 kg
[~2019-02-23 09:38] MED LIST changes: -AMLO5TAB13 PO; +AMLO5TAB15 PO
--- NOTE | 2019-02-23 14:59 | NUR ---
Report received from KARAN Mccallum at [facility], Stroke unit. Per report vital signs stable BP 125/57, HR 53, O2 100 on 2L NC, Temp 98.2 RR 17, no pain. sales support rep time from [facility] is 1530.
--- NOTE | 2019-02-23 16:00 | NUR ---
Spoke to Dr. Flaherty regarding patient on the way for transfer, as he was the accepting MD. Dr. Carranza said he will speak to Dr. Caldwell, and for this RN to page Dr. Caldwell upon arrival.
--- NOTE | 2019-02-23 17:20 | NUR ---
Patient arrived via [facility] unit 363 Report from EMT Jose. Assumed care of patient, he is A & O x 2, patient is aware of his name and birthday when asked, patient mumbles and rambles, but can answer some questions with an appropriate answer. Patient has an NG tube placed to the left nare, IV to the left hand 22G, condom cath in place. Patient has a mitten to the right hand, per report patient has tried to pull out NG tube. Patient is cooperative at this time. Will reassess need for mitten. Patient BP 129/63, HR 63, RR 16, O2 100, T 98.3. Patient yells in pain when turned to his right side. Skin is intact, no abnormalities to the buttocks or R hip, scabs to the left knee dry and intact. Will continue to monitor. Sitter is at bedside, bed is in low, locked position.
--- NOTE | 2019-02-23 17:25 | NUR ---
Paged Dr. Caldwell regarding transfer arrival, need orders. Notified Jaswinder raymundo RN of patient arrival.
--- NOTE | 2019-02-23 18:05 | NUR ---
Paged Dr. Caldwell regarding transfer patient arrival.
--- NOTE | 2019-02-23 18:30 | NUR ---
Erin Garay RN attempted to call family twice per phone number given, no answer by family, admission was completed as much as possible without family input. Patient is unable to answer assessment questions as needed.
[2019-02-23] MEDS ORDERED: hydrALAZINE HCL 20 MG/ML VL IV PRN (18:45)
[2019-02-23] MEDS ORDERED: LABETALOL HCL 5 MG/ML ML 20ML VIAL IV PRN (18:45)
[2019-02-23] MEDS ORDERED: MORPHINE SULF INJ 2 MG/ML SYRINGE 1ML IV PRN (19:00)
[2019-02-23] MEDS ORDERED: NITROGLYCERIN 0.4 MG SL TAB SL PRN (19:00)
--- NOTE | 2019-02-23 19:40 | NUR ---
Report given to Dariana RUSSO. Patient will now be a telemetry patient, was initially going to be a med/surg patient, notified Dariana, patient will need a tele box. Care endorsed to Dariana RUSSO.
--- NOTE | 2019-02-23 20:00 | NUR ---
RECEIVED PATIENT FROM DAY SHIFT RN. PATIENT RESTING IN BED. NO S/S OF DISTRESS NOTED. DENIED PAIN FOR NOW. REORIENTED PATIENT TO SITUATION, PLACE AND TIME. PATIENT IS APHASIC. AND ANSWERING YES OR NO ONLY. LEFT SIDE FLACCID NOTED. CONDOM CATH IN PLACE DRAINING GRAVITY. CLEANED PATIENT FOR BM. PATIENT TOLERATED WELL. POC INSTRUCTED AND ENCOURAGED PATIENT TO CALL FOR PHARMACIST ASSISTANT IF NEEDED. BED IN LOWEST POSITION WITH SIDE RAILS UP X 2. CALL FUNG WITHIN REACH. SITTER AT BEDSIDE FOR SAFETY. CONTINUE TO MONITOR FOR CHANGES Q1H AND PRN.
[2019-02-23 20:58] VITALS: BP 153/70
--- NOTE | 2019-02-23 21:06 | NUR ---
PATIENT IS ON TELE MONITOR, INITIAL READING ON TELE BOX 67 IS SR 61. CONTINUE TO MONITOR.
[2019-02-23] MEDS: LEVETIRACETAM 500 MG/5ML ORAL SOLN UD GT SCH (21:44)
[2019-02-23] MEDS: ATORVASTATIN 20 MG TAB NG SCH (21:44)
[2019-02-23] MEDS: QUEtiapine FUMARATE 25 MG TAB NG SCH (21:45)
[2019-02-23] MEDS: hydrALAZINE HCL 25 MG TAB NG SCH (21:47)
--- NOTE | 2019-02-23 22:00 | NUR ---
SCHEDULED MEDICATIONS GIVEN VIA NG TUBE. PATIENT TOLERATED WELL. NO S/S OF ASPIRATION NOTED. CONTINUE TO MONITOR.
--- NOTE | 2019-02-24 00:20 | NUR ---
REPOSITIONED PATIENT. PATIENT TOLERATED WELL. CONTINUE CARE.
[2019-02-24 05:06] VITALS: BP 142/71
[2019-02-24] MEDS: LEVOTHYROXINE SODIUM 112 MCG TAB PO SCH (06:16)
[2019-02-24] MEDS: LEVOTHYROXINE SODIUM 25 MCG TAB PO SCH (06:16)
[2019-02-24] MEDS: hydrALAZINE HCL 25 MG TAB NG SCH ×3 (06:17→21:50)
--- NOTE | 2019-02-24 07:34 | NUR ---
AFTER ADMINISTERING MEDICATION THIS MORNING, IT WAS HARD TO FLUSH WITH WATER. NO WATER FLUSHING AFTER MEDICATION. TRIED TO FLUSH NG TUBE 1 HOUR LATER, STILL COULD NOT GET THROUGH. PASSED IT TO DAY SHIFT RN TO CHECK WITH MD FOR FURTHER INTERVENTION. DAY SHIFT NURSE KAYLEE AWARE, AND VERBALIZED UNDERSTANDING.
--- NOTE | 2019-02-24 07:50 | NUR ---
Opening Shift Note Assumed care of patient, asleep. No S/S of distress/SOB or pain. Will follow up once awake with instructions on POC and to call for assist PRN, will continue to monitor for changes Q1hr and PRN. Sitter at bedside for safety.
[2019-02-24 08:37] VITALS: BP 114/62
[2019-02-24] MEDS: amLODIPine BESYLATE 5 MG TAB NG SCH ×2 (10:00→10:23)
[2019-02-24] MEDS: CITALOPRAM HYDROBR 20 MG TAB NG SCH ×2 (10:00→10:22)
[2019-02-24] MEDS: LISINOPRIL 20 MG TAB PO SCH (10:00)
[2019-02-24] MEDS ORDERED: PATIENTS OWN MEDICATION (Levothyroxine Sodium (Synthroid) 1 TAB) NG SCH (10:00)
--- NOTE | 2019-02-24 10:00 | NUR ---
Morning medications Unable to administer medications through NGT. Met resistance when tried with water. Will notify .
[2019-02-24] MEDS: LEVETIRACETAM 500 MG/5ML ORAL SOLN UD GT SCH (10:22)
--- NOTE | 2019-02-24 11:01 | NUR ---
Nutrition Consult/assessment Notes please see attached link for complete assessment Est. Needs BW [id number] kcal (25-30 kcal/kgBW), 75-90 gms pro (1.0-1.2 gms/kgBW). Will continue to monitor pertinent labs and reassess nutrient need prn Addendum: 02/24/19 at [address] Amended: Links added.
[2019-02-24 13:00] VITALS: BP 133/64
[2019-02-24 13:54] LABS: Urine Amorphous Crystal FEW /hpf (None Seen); Urine Bacteria FEW /hpf (None Seen); Urine Blood Negative /uL (Negative); Urine Hyaline Cast FEW /lpf (0 - 2); Urine Mucus FEW (None Seen); Urine WBC 378 /hpf (0 - 3)
[2019-02-24] MEDS: D5W/ SOD CHL 0.9%/KCL 20MEQ 1,000 ML IV SCH (14:15)
--- NOTE | 2019-02-24 15:10 | NUR ---
WOUND CARE NOTE: Wound care consult received for low Eb score. Patient is a 83 yo male admitted for a cerebral bleeding. Patient with a history of CVA with left sided hemiplegia, dyslipidemia, hypertension, Alzheimers, seizures, CAD, chronic kidney disease #3, hypothyroid, BPH, and atherosclerotic vascular disease. Last Eb is 12. Patient with no open wounds noted. RECOMMENDATIONS: Dietary consult; turn q2hrs; Nursing to cleanse sacrum with mild soap and water, pat dry, apply ZGUARD BID/PRN and cover with OPTIFOAM GENTLE dressing; wound care team to follow
[2019-02-24 15:15] LABS: Basophils # (auto) 0 uL; Eosinophils # (auto) 0.1 uL; Hemoglobin 12.7 g/dL (13.5-17.5); Lymphocytes # (auto) 0.9 uL
[2019-02-24 15:17] LABS: Basophils % (auto) 0.4 % (0.0-2.0); Eosinophils % (auto) 0.9 % (0.0-7.0); Hematocrit 35.8 % (41.0-53.0); Lymphocytes % (auto) 8.9 % (10.0-50.0); Mean Corpuscular Hgb Conc. 35.6 g/dL (32.0-36.0); Mean Corpuscular Volume 95.5 fL (80.0-100.0); Monocytes % (auto) 10.3 % (0.0-12.0); Neutrophils # (auto) 7.8 uL; Neutrophils % (auto) 79.5 % (37.0-80.0); Platelet Count (auto) 269 10^3/uL (140-450); Red Blood Cells 3.75 10^6/uL (4.5-5.90); Red Cell Distribution Width 12.4 % (11.8-14.3); White Blood Cell 9.8 10^3/uL (4.4-10.8)
[2019-02-24 15:29] LABS: INR 1.1 (0.9-1.15)
[2019-02-24 15:39] LABS: Free T3 2.68 pg/mL (2.3-4.2); Free T4 (Free Thyroxine) 1.39 ng/dL (0.89-1.76)
--- NOTE | 2019-02-24 15:49 | NUR ---
SWALLOW EVALUATED WITH NURSING PRESENT. PATIENT HAS OWN TEETH. ABLE TO FOLLOW COMMANDS. PATIENT IS APHASIC. UNINTELLIGIBLE. PATIENT ABLE TO TOLERATE PUREE DIET TEXTURE WITH THIN LIQUIDS WITH NO OVERT SIGNS OR SYMPTOMS OF ASPIRATION.
--- NOTE | 2019-02-24 16:22 | NUR ---
assessment Patient is a 83 year old male who is confused. Per patients son Pepito prior to admission patient lived home with his Ex Georgie He and functioned with her assistance. Per Pepito patient will return home on discharge and he will transport patient home. Per Pepito patient has a wheelchair, fww, and a cane for home use. Patients PCP is Dr Bui. Patient has an NG tube. I informed Pepito he has a right to speak to a social contact worker regarding all care. I informed Pepito he has a right to participate in any and all discharge planning. Patient does not have a POA and advanced directive. I informed Pepito patient cannot sign for POA or advanced directive while confused. Pepito verbalized understanding and agreed to discharge plan home. Addendum: 02/27/19 at 1628 by Sade MONTE Amended: Links added.
[2019-02-24 17:00] VITALS: BP 119/72
--- NOTE | 2019-02-24 20:00 | NUR ---
RECEIVED PATIENT FROM DAY SHIFT RN. PATIENT RESTING IN BED. NO S/S OF DISTRESS NOTED. DENIED PAIN FOR NOW. REORIENTED PATIENT TO SITUATION, PLACE AND TIME. PATIENT IS APHASIC. AND ANSWERING YES OR NO ONLY. LEFT SIDE FLACCID NOTED. CONDOM CATH IN PLACE DRAINING GRAVITY. NG TUBE IN PLACE COULD NOT GET THROUGH. POC INSTRUCTED AND ENCOURAGED PATIENT TO CALL FOR COLD WORK OPERATOR IF NEEDED. BED IN LOWEST POSITION WITH SIDE RAILS UP X 2. CALL FUNG WITHIN REACH. SITTER AT BEDSIDE FOR SAFETY. CONTINUE TO MONITOR FOR CHANGES Q1H AND PRN.
[2019-02-24 21:00] VITALS: BP 152/74
[2019-02-24] MEDS: LEVETIRACETAM INJ 500 MG in D5W 5% 100 ML IV SCH (21:50)
[2019-02-24] MEDS: QUEtiapine FUMARATE 25 MG TAB NG SCH (21:51)
[2019-02-24] MEDS: ATORVASTATIN 20 MG TAB NG SCH (21:51)
--- NOTE | 2019-02-24 22:00 | NUR ---
SCHEDULED ORAL MEDICATIONS GIVEN ORDERED WITH APPLE SAUCE. PATIENT SWALLOWED WELL. NO S/S OF ASPIRATION NOTED. CONTINUE TO MONITOR.
--- NOTE | 2019-02-25 02:21 | NUR ---
PATIENT SLEEPING. NO S/S OF DISTRESS NOTED. CONTINUE CARE.
[2019-02-25 04:48] VITALS: BP 137/75
[2019-02-25 06:05] LABS: Basophils # (auto) 0.1 uL; Basophils % (auto) 0.7 % (0.0-2.0); Eosinophils # (auto) 0.1 uL; Eosinophils % (auto) 1.6 % (0.0-7.0); Hematocrit 34.1 % (41.0-53.0); Hemoglobin 12.1 g/dL (13.5-17.5); Lymphocytes # (auto) 0.9 uL; Lymphocytes % (auto) 10.7 % (10.0-50.0); Mean Corpuscular Hemoglobin 33.9 pg (28.0-32.0); Mean Corpuscular Hgb Conc. 35.5 g/dL (32.0-36.0); Mean Corpuscular Volume 95.6 fL (80.0-100.0); Monocytes % (auto) 11.5 % (0.0-12.0); Neutrophils # (auto) 6.6 uL; Neutrophils % (auto) 75.5 % (37.0-80.0); Platelet Count (auto) 255 10^3/uL (140-450); Red Blood Cells 3.57 10^6/uL (4.5-5.90); Red Cell Distribution Width 12.2 % (11.8-14.3); White Blood Cell 8.8 10^3/uL (4.4-10.8)
[2019-02-25 06:24] LABS: INR 1.11 (0.9-1.15)
[2019-02-25] MEDS: hydrALAZINE HCL 25 MG TAB NG SCH ×3 (06:24→22:30)
[2019-02-25] MEDS: LEVOTHYROXINE SODIUM 112 MCG TAB PO SCH (06:24)
[2019-02-25] MEDS: LEVOTHYROXINE SODIUM 25 MCG TAB PO SCH (06:24)
--- NOTE | 2019-02-25 06:25 | NUR ---
SCHEDULED ORAL MEDICATIONS GIVEN ORDERED WITH APPLE SAUCE. PATIENT SWALLOWED WELL. NO S/S OF ASPIRATION NOTED. CONTINUE TO MONITOR.
[2019-02-25 06:43] LABS: Potassium 4.3 mmol/L (3.5-5.1)
[2019-02-25 06:50] LABS: Albumin 2.5 g/dL (3.4-5.0); BUN/Creatinine Ratio 24.1; Calcium 8.7 mg/dL (8.5-10.1)
[2019-02-25 06:53] LABS: Bilirubin, Total 0.4 mg/dL (0.2-1.0); Total Protein 6.6 g/dL (6.4-8.2)
--- NOTE | 2019-02-25 08:00 | NUR ---
RECEIVED REPORT FROM ROSS RUSSO.
--- NOTE | 2019-02-25 08:00 | NUR ---
PATIENT TOLERATED PUREED BREAKFAST WITH MAX ASSIST. NO S/S OF ASPIRATION NOTED. HOB MAINTAINED >30 DEGREES.
--- NOTE | 2019-02-25 08:15 | NUR ---
Opening Shift Note Assumed care of patient, awake and alert. No S/S of distress/SOB or pain. Instructed on POC and to call for assist PRN, will continue to monitor. Bed locked in the lowest position. Bed rails up x2. Call light in reach. Sitter at the bedside for safety. Addendum: 02/25/19 at 1510 by Lynette Mott RN AWAKE AND ALERT TO SELF AND SITUATION ONLY*
[2019-02-25] MEDS: cefTRIAXone 1GM/50ML D5W 50 ML IV SCH (08:45)
[2019-02-25] MEDS: D5W/ SOD CHL 0.9%/KCL 20MEQ 1,000 ML IV SCH (08:45)
[2019-02-25 09:03] VITALS: BP 132/64
--- NOTE | 2019-02-25 10:00 | NUR ---
NG UNABLE TO CONFIRM PLACEMENT OF NG TUBE. WILL NOT ASPIRATE OR FLUSH. VALVE IS OPEN. WHITE FLUID AND SEDIMENT NOTED IN TUBING. PATIENT C/O PAIN AND STATING "OUT". WILL NOTIFY
[2019-02-25] MEDS: LEVETIRACETAM INJ 500 MG in D5W 5% 100 ML IV SCH (10:43)
[2019-02-25] MEDS: amLODIPine BESYLATE 5 MG TAB NG SCH (10:44)
[2019-02-25] MEDS: CITALOPRAM HYDROBR 20 MG TAB NG SCH (10:45)
[2019-02-25] MEDS: LISINOPRIL 20 MG TAB PO SCH (10:45)
--- NOTE | 2019-02-25 12:00 | NUR ---
PATIENT TOLERATED PUREED LUNCH WITH MAX ASSIST. NO S/S OF ASPIRATION NOTED.
[2019-02-25 13:00] VITALS: BP 108/56
--- NOTE | 2019-02-25 14:19 | NUR ---
Opening Shift Note Assumed care of patient, awake and alert. No S/S of distress/SOB or pain. Instructed on POC and to call for assist PRN, will continue to monitor. Bed locked in the lowest position. Bed rails up x2. Call light in reach. Addendum: 02/25/19 at 1508 by Lynette Mott RN DISREGARD NOTE- REPEAT NOTE FROM AM.
--- NOTE | 2019-02-25 14:20 | NUR ---
NGT removal NGT removed per MD order. Tubing intact upon removal. Patient tolerated well.
[2019-02-25] MEDS ORDERED: MORPHINE SULF INJ 2 MG/ML SYRINGE 1ML IV PRN (16:00)
--- NOTE | 2019-02-25 16:00 | NUR ---
PAIN PATIENT C/O PAIN. MD AWARE. NEW ORDER RECEIVED. ORDER READ BACK AND VERIFIED. OFFERED PATIENT MORPHINE PER MD ORDER, PATIENT REFUSED MEDICATION. PATIENT IS BEING TURNED Q2 AND PRN FOR COMFORT.
[2019-02-25 16:47] VITALS: BP 138/60
--- NOTE | 2019-02-25 18:00 | NUR ---
PATIENT TOLERATED PUREED DINNER WITH MAX ASSIST. NO S/S OF ASPIRATION NOTED.
--- NOTE | 2019-02-25 19:05 | NUR ---
Closing Note Patient is awake and alert x2. No S/S of distress/SOB or pain. Bed locked in the lowest position. Bed rails up x2. Call light in reach. Sitter at the bedside for safety. Endorsed care to night nurse.
--- NOTE | 2019-02-25 19:10 | NUR ---
PATIENT COUGHING PATIENT COUGHING AND UNABLE TO CLEAR SECRETIONS. SUCTIONED PATIENT. PATIENT TOLERATED WELL. MAINTAINED HOB >30 DEGREES. ENDORSED TO MAYELA RN. MAYELA RN AT THE BEDSIDE.
[2019-02-25 20:00] VITALS: BP 121/60
[2019-02-25 22:00] VITALS: BP 136/61
[2019-02-25] MEDS: QUEtiapine FUMARATE 25 MG TAB NG SCH (22:29)
[2019-02-25] MEDS: ATORVASTATIN 20 MG TAB NG SCH (22:31)
[2019-02-26] MEDS: LEVETIRACETAM INJ 500 MG in D5W 5% 100 ML IV SCH ×3 (00:08→22:13)
[2019-02-26] MEDS: D5W/ SOD CHL 0.9%/KCL 20MEQ 1,000 ML IV SCH ×2 (04:30→13:32)
[2019-02-26 05:00] VITALS: BP 125/60
[2019-02-26] MEDS: LEVOTHYROXINE SODIUM 25 MCG TAB PO SCH (06:24)
[2019-02-26] MEDS: LEVOTHYROXINE SODIUM 112 MCG TAB PO SCH (06:25)
[2019-02-26] MEDS: hydrALAZINE HCL 25 MG TAB NG SCH ×3 (06:26→22:13)
--- NOTE | 2019-02-26 06:43 | NUR ---
PT PULLED OFF CONDOM CATHETER;THE SECOND ONE; PT TURNED AND REPOSITIONED. PT HAS BEEN SWALLOWING CRUSHED MEDS IN THICK PUDDING W/O DISTRESS. SITTER AT BEDSIDE;WILL CONTINUE TO MONITOR.
[2019-02-26 07:18] LABS: Basophils # (auto) 0 uL; Eosinophils # (auto) 0.1 uL; Lymphocytes % (auto) 10.8 % (10.0-50.0); Neutrophils # (auto) 7.1 uL; White Blood Cell 9.3 10^3/uL (4.4-10.8)
[2019-02-26 07:21] LABS: Basophils % (auto) 0.4 % (0.0-2.0); Eosinophils % (auto) 0.8 % (0.0-7.0); Hematocrit 32.4 % (41.0-53.0); Hemoglobin 11.6 g/dL (13.5-17.5); Mean Corpuscular Hemoglobin 34.3 pg (28.0-32.0); Mean Corpuscular Hgb Conc. 35.9 g/dL (32.0-36.0); Mean Corpuscular Volume 95.3 fL (80.0-100.0); Monocytes % (auto) 11.1 % (0.0-12.0); Neutrophils % (auto) 76.9 % (37.0-80.0); Nucleated Red Blood Cells % 0.1 %; Platelet Count (auto) 244 10^3/uL (140-450); Red Cell Distribution Width 12.5 % (11.8-14.3)
[2019-02-26 07:38] LABS: Potassium 4.1 mmol/L (3.5-5.1)
[2019-02-26 07:44] LABS: BUN/Creatinine Ratio 18.7; Calcium 8.5 mg/dL (8.5-10.1)
[2019-02-26 09:00] VITALS: BP 119/58
[2019-02-26] MEDS: cefTRIAXone 1GM/50ML D5W 50 ML IV SCH (09:28)
[2019-02-26] MEDS: CITALOPRAM HYDROBR 20 MG TAB NG SCH (09:29)
[2019-02-26] MEDS: LISINOPRIL 20 MG TAB PO SCH (09:33)
[2019-02-26] MEDS: amLODIPine BESYLATE 5 MG TAB NG SCH (09:33)
[2019-02-26 13:00] VITALS: BP 125/57
[2019-02-26] MEDS: ALBUTEROL SULF 2.5 MG/0.5ML(0.5%) NEB SOLN NEB SCH ×2 (13:23→19:28)
[2019-02-26 15:39] VITALS: BP 128/58
--- NOTE | 2019-02-26 16:15 | NUR ---
DR. ELIZABETH NEW ORDERS RECEIVED ROBITUSSIN DM 10ML PO Q4HR. WILL FOLLOW ORDERED.
[2019-02-26 17:00] VITALS: BP 133/58
[2019-02-26] MEDS: guaiFENesin-DM 100/10mg/5ml SYR PO SCH (17:20)
--- NOTE | 2019-02-26 19:10 | NUR ---
Opening Shift Note Assumed care of patient, awake and alert to self and is able to follow commands. No S/S of distress/SOB or pain. Instructed on POC and to call for assist PRN. Condom catheter was off the patient, removed catheter from bed sheets and catheter bag, minimal yellow urine output in bag. Call light is within reach, side rails up x2 for safety, bed is in lowest position, brakes are locked, sitter is at bedside. Will continue to monitor for changes Q1hr and PRN.
--- NOTE | 2019-02-26 19:15 | NUR ---
Patient cleaned and new linens placed under him, he was repositioned for comfort. Call light is within reach, sitter is at bedside for safety, will continue to monitor.
[2019-02-26 22:00] VITALS: BP 140/73
[2019-02-26] MEDS: ATORVASTATIN 20 MG TAB NG SCH (22:13)
[2019-02-26] MEDS: QUEtiapine FUMARATE 25 MG TAB NG SCH (22:13)
[2019-02-27] MEDS: ALBUTEROL SULF 2.5 MG/0.5ML(0.5%) NEB SOLN NEB SCH ×4 (00:09→19:17)
[2019-02-27] MEDS: guaiFENesin-DM 100/10mg/5ml SYR PO SCH ×5 (02:00→18:00)
--- NOTE | 2019-02-27 04:00 | NUR ---
EKG is in hard chart.
[2019-02-27 04:47] VITALS: BP 134/71
[2019-02-27] MEDS: hydrALAZINE HCL 25 MG TAB NG SCH ×3 (06:00→21:48)
[2019-02-27] MEDS: LEVOTHYROXINE SODIUM 25 MCG TAB PO SCH (06:31)
[2019-02-27] MEDS: LEVOTHYROXINE SODIUM 112 MCG TAB PO SCH (06:31)
[2019-02-27 07:14] LABS: Red Blood Cells 3.31 10^6/uL (4.5-5.90)
--- NOTE | 2019-02-27 07:15 | NUR ---
Endorsed care to Braden RUSSO.
[2019-02-27 07:18] LABS: Basophils # (auto) 0 uL; Basophils % (auto) 0.5 % (0.0-2.0); Eosinophils # (auto) 0.1 uL; Eosinophils % (auto) 1.7 % (0.0-7.0); Hematocrit 32.1 % (41.0-53.0); Hemoglobin 11.3 g/dL (13.5-17.5); Lymphocytes # (auto) 0.9 uL; Lymphocytes % (auto) 10.1 % (10.0-50.0); Mean Corpuscular Hemoglobin 34.2 pg (28.0-32.0); Mean Corpuscular Hgb Conc. 35.3 g/dL (32.0-36.0); Monocytes # (auto) 0.8 uL; Monocytes % (auto) 9.6 % (0.0-12.0); Neutrophils # (auto) 6.7 uL; Neutrophils % (auto) 78.1 % (37.0-80.0); Nucleated Red Blood Cells % 0.2 %; Platelet Count (auto) 224 10^3/uL (140-450); Red Cell Distribution Width 12.3 % (11.8-14.3); White Blood Cell 8.6 10^3/uL (4.4-10.8)
[2019-02-27 07:35] LABS: BUN/Creatinine Ratio 16.4; Calcium 8.5 mg/dL (8.5-10.1); Potassium 4.2 mmol/L (3.5-5.1)
[2019-02-27 08:00] VITALS: BP 132/65
[2019-02-27] MEDS: cefTRIAXone 1GM/50ML D5W 50 ML IV SCH (08:34)
[2019-02-27] MEDS ORDERED: SODIUM CHLORIDE LOCK 10 ML ONE (08:39)
[2019-02-27] MEDS ORDERED: LIDOCAINE VISCOUS 2% 15ML UD ONE (08:39)
[2019-02-27] MEDS ORDERED: diphenhdrAMINE HCL 50 MG/1 ML VL ONE (08:40)
[2019-02-27] MEDS ORDERED: MIDAZOLAM HCL 5 MG/ML-1ML VIAL ONE (08:40)
[2019-02-27] MEDS ORDERED: fentaNYL CITRATE 100 MCG/2 ML VL ONE (08:40)
[2019-02-27 09:02] VITALS: BP 132/65
[2019-02-27] MEDS: LEVETIRACETAM INJ 500 MG in D5W 5% 100 ML IV SCH ×2 (10:52→21:47)
[2019-02-27] MEDS: LISINOPRIL 20 MG TAB PO SCH (10:53)
[2019-02-27] MEDS: amLODIPine BESYLATE 5 MG TAB NG SCH (10:54)
[2019-02-27] MEDS: CITALOPRAM HYDROBR 20 MG TAB NG SCH (10:55)
[2019-02-27 13:00] VITALS: BP 116/67
--- NOTE | 2019-02-27 13:53 | NUR ---
Nutrition Consult and Follow-up Notes Wt.: 74.3 kg today. Pt's asleep, no immediate family member at bedside except sitter during rounds this morning. Pt's no signs of distress noted, NPO earlier, had swallow eval by ST (02/24/19) likely to resume on Pureed oral diet with active order at this time. Noted pt's for active Wound and GI consults. Est. Needs BW [id number] kcal (25-30 kcal/kgBW), 75-90 gms pro (1.0-1.2 gms/kgBW). Will continue to monitor pertinent labs and reassess nutrient need prn Labs: pertinent labs today wnl except for Cl 110 H; Alb 2.5 L Skin: Eb scale 12, high risk, left knee scab per provisioning specialist. Pls refer to latest value stream coach's notes for further details re: tx plans. GI: Pt had 2x BM yesterday per provisioning specialist. PES: Increased nutrient needs r/t current/chronic medical/nutritional status aeb 92% IBW, BMI 22.2 kg/m2, decreased muscle mass, mod hypoalbuminemia Altered nutrition related lab values r/t current/chronic medical condition aeb hyperchloremia, mod hypoalbuminemia Will continue to monitor PO intake, skin status, pertinent labs and weight trend. F/u in 3 to 5 days. Rec.: 1.) Consider Ensure Enlive 1 carton BID. 2.) If Albumin continues trending down, consider Prostat 1 pkt BID. 3.) Consider daily MVI with minerals and Asc acid 500 mgs BID prn. 4.) Continue close supervision during meals. 5.) Refer pt to RD for further nutrition education and weight monitoring upon discharge. 5.) Continue current plan of care. Thank you for this consult
--- NOTE | 2019-02-27 14:28 | NUR ---
re-assessment Per consult evaluate for DC planning, probable placement, possible hospice. I have called patients son Pepito twice with no answer. I have left [facility] message to return my call. Waiting manager transmission back now. Addendum: 02/27/19 at 1631 by Sade Stoll Amended: Links added.
[2019-02-27 17:15] VITALS: BP 128/68
[2019-02-27 21:14] VITALS: BP 144/63
[2019-02-27] MEDS: D5W/ SOD CHL 0.9%/KCL 20MEQ 1,000 ML IV SCH (21:47)
[2019-02-27] MEDS: QUEtiapine FUMARATE 25 MG TAB NG SCH (21:49)
[2019-02-27] MEDS: ATORVASTATIN 20 MG TAB NG SCH (21:49)
[2019-02-28] MEDS: ALBUTEROL SULF 2.5 MG/0.5ML(0.5%) NEB SOLN NEB SCH ×4 (00:57→18:43)
[2019-02-28] MEDS: guaiFENesin-DM 100/10mg/5ml SYR PO SCH ×5 (02:09→18:00)
[2019-02-28 05:00] VITALS: BP 115/61
[2019-02-28] MEDS: hydrALAZINE HCL 25 MG TAB NG SCH ×3 (05:47→22:31)
[2019-02-28] MEDS: LEVOTHYROXINE SODIUM 25 MCG TAB PO SCH (05:47)
[2019-02-28] MEDS: LEVOTHYROXINE SODIUM 112 MCG TAB PO SCH (05:47)
[2019-02-28 06:30] LABS: Basophils # (auto) 0 uL; Basophils % (auto) 0.3 % (0.0-2.0); Eosinophils # (auto) 0.2 uL; Eosinophils % (auto) 2.1 % (0.0-7.0); Hematocrit 32.1 % (41.0-53.0); Hemoglobin 11.7 g/dL (13.5-17.5); Lymphocytes # (auto) 0.9 uL; Lymphocytes % (auto) 10.1 % (10.0-50.0); Mean Corpuscular Hemoglobin 34.8 pg (28.0-32.0); Mean Corpuscular Hgb Conc. 36.7 g/dL (32.0-36.0); Mean Corpuscular Volume 94.9 fL (80.0-100.0); Monocytes % (auto) 11.2 % (0.0-12.0); Neutrophils # (auto) 6.5 uL; Neutrophils % (auto) 76.3 % (37.0-80.0); Platelet Count (auto) 227 10^3/uL (140-450); Red Blood Cells 3.38 10^6/uL (4.5-5.90); Red Cell Distribution Width 12.3 % (11.8-14.3); White Blood Cell 8.5 10^3/uL (4.4-10.8)
[2019-02-28 06:53] LABS: Albumin 2.4 g/dL (3.4-5.0); BUN/Creatinine Ratio 19.4; Calcium 8.5 mg/dL (8.5-10.1); Potassium 4.2 mmol/L (3.5-5.1)
[2019-02-28 06:56] LABS: Bilirubin, Total 0.4 mg/dL (0.2-1.0); Total Protein 6.6 g/dL (6.4-8.2)
[2019-02-28 08:00] VITALS: BP 112/54
[2019-02-28] MEDS: cefTRIAXone 1GM/50ML D5W 50 ML IV SCH (08:24)
[2019-02-28 09:00] VITALS: BP 112/54
[2019-02-28] MEDS: LEVETIRACETAM INJ 500 MG in D5W 5% 100 ML IV SCH ×2 (09:43→22:31)
[2019-02-28] MEDS: CITALOPRAM HYDROBR 20 MG TAB NG SCH (09:44)
[2019-02-28] MEDS: amLODIPine BESYLATE 5 MG TAB NG SCH (09:45)
[2019-02-28] MEDS: LISINOPRIL 20 MG TAB PO SCH (09:46)
[2019-02-28] MEDS ORDERED: VANCOMYCIN PER PHARMACY 0 MG IV SCH (11:30)
[2019-02-28] MEDS: MEROPENEM 1GM IVPB 100 ML IV SCH ×2 (12:38→20:06)
[2019-02-28 13:00] VITALS: BP 114/58
[2019-02-28] MEDS: VANCOMYCIN 1GM/250ML 250 ML IV SCH (14:15)
--- NOTE | 2019-02-28 15:54 | NUR ---
re-assessment Patients son Pepito has called me back. I informed Pepito patient has a ss consult for possible placement and hospice care program. I have read [facility] list of medicare providers. Per Pepito [facility] hospice to provide service. Dr Flaherty will evaluate patient to see if her qualifies. Waiting for decision now. Addendum: 02/28/19 at 1558 by Sade MONTE Amended: Links added.
[2019-02-28 17:00] VITALS: BP 133/67
[2019-02-28] MEDS: D5W/ SOD CHL 0.9%/KCL 20MEQ 1,000 ML IV SCH (17:57)
[2019-02-28] MEDS: Ensure Enlive Chocolate 8oz Bottle PO SCH (17:59)
--- NOTE | 2019-02-28 19:35 | NUR ---
OPENING SHIFT NOTE RECEIVED REPORT FROM DAYSHIFT RN. PATIENT LYING IN BED WITH SITTER AT BEDSIDE FOR SAFETY. NO S/S OF DISTRESS OR SOB. NO PAIN NOTED OR REPORTED AT THIS TIME. PATIENT A/O X1, BEDREST. OSEI CATHETER PRESENT DRAINING CLEAR, YELLOW URINE. BED LOCKED IN LOW POSITION, CALL LIGHT WITHIN REACH. WILL CONTINUE TO MONITOR PATIENT Q1HR AND PRN.
[2019-02-28] MEDS: ATORVASTATIN 20 MG TAB NG SCH (22:31)
[2019-02-28] MEDS: QUEtiapine FUMARATE 25 MG TAB NG SCH (22:32)
[2019-03-01] VITALS (8 sets, daily range): BP systolic 106–151; BP diastolic 48–86
[2019-03-01] MEDS: ALBUTEROL SULF 2.5 MG/0.5ML(0.5%) NEB SOLN NEB SCH ×4 (00:26→19:31)
[2019-03-01] MEDS: guaiFENesin-DM 100/10mg/5ml SYR PO SCH ×5 (02:00→17:25)
[2019-03-01] MEDS: VANCOMYCIN 1GM/250ML 250 ML IV SCH ×2 (03:02→15:16)
[2019-03-01] MEDS: MEROPENEM 1GM IVPB 100 ML IV SCH ×3 (04:44→20:55)
[2019-03-01 06:26] LABS: Eosinophils # (auto) 0.2 uL; Hemoglobin 11.6 g/dL (13.5-17.5); Lymphocytes # (auto) 0.9 uL; Mean Corpuscular Hgb Conc. 35.6 g/dL (32.0-36.0); Red Blood Cells 3.39 10^6/uL (4.5-5.90); White Blood Cell 7.9 10^3/uL (4.4-10.8)
[2019-03-01 06:31] LABS: Calcium 8.5 mg/dL (8.5-10.1); Potassium 4.2 mmol/L (3.5-5.1)
[2019-03-01 06:32] LABS: Basophils # (auto) 0 uL; Basophils % (auto) 0.6 % (0.0-2.0); Hematocrit 32.6 % (41.0-53.0); Lymphocytes % (auto) 11.5 % (10.0-50.0); Mean Corpuscular Hemoglobin 34.2 pg (28.0-32.0); Mean Corpuscular Volume 96.1 fL (80.0-100.0); Monocytes # (auto) 0.8 uL; Monocytes % (auto) 9.6 % (0.0-12.0); Neutrophils % (auto) 75.3 % (37.0-80.0); Platelet Count (auto) 233 10^3/uL (140-450); Red Cell Distribution Width 12.2 % (11.8-14.3)
[2019-03-01] MEDS: LEVOTHYROXINE SODIUM 112 MCG TAB PO SCH (06:33)
[2019-03-01] MEDS: LEVOTHYROXINE SODIUM 25 MCG TAB PO SCH (06:33)
[2019-03-01] MEDS: hydrALAZINE HCL 25 MG TAB NG SCH ×3 (06:33→21:56)
[2019-03-01 06:44] LABS: Albumin 2.3 g/dL (3.4-5.0); BUN/Creatinine Ratio 23.9; Bilirubin, Total 0.4 mg/dL (0.2-1.0); Total Protein 6.4 g/dL (6.4-8.2)
[2019-03-01] MEDS: Ensure Enlive Chocolate 8oz Bottle PO SCH ×2 (08:08→17:25)
[2019-03-01] MEDS: CITALOPRAM HYDROBR 20 MG TAB NG SCH (10:42)
[2019-03-01] MEDS: LEVETIRACETAM INJ 500 MG in D5W 5% 100 ML IV SCH ×2 (10:42→21:56)
[2019-03-01] MEDS: LISINOPRIL 20 MG TAB PO SCH (10:44)
[2019-03-01] MEDS: amLODIPine BESYLATE 5 MG TAB NG SCH (10:44)
[2019-03-01] MEDS: D5W/ SOD CHL 0.9%/KCL 20MEQ 1,000 ML IV SCH (12:56)
--- NOTE | 2019-03-01 15:36 | NUR ---
SWALLOW EVALUATED. PATIENT ALOC. HAS OWN TEETH UPPER AND LOWER, SOME MISSING. PATIENT ABLE TO TOLERATE PUREE DIET TEXTURE WITH NECTAR THICKENED LIQUIDS WITH NO OVERT SIGNS OR SYMPTOMS OF ASPIRATION. NURSING NOTIFIED.
[2019-03-01] MEDS: ATORVASTATIN 20 MG TAB NG SCH (21:57)
[2019-03-01] MEDS: QUEtiapine FUMARATE 25 MG TAB NG SCH (21:57)
[2019-03-01] MEDS ORDERED: ACETAMINOPHEN 325 MG TAB PO ONE (23:00)
[2019-03-02] MEDS: ALBUTEROL SULF 2.5 MG/0.5ML(0.5%) NEB SOLN NEB SCH ×4 (00:46→19:45)
[2019-03-02] MEDS: guaiFENesin-DM 100/10mg/5ml SYR PO SCH ×5 (01:26→17:11)
[2019-03-02] MEDS: MEROPENEM 1GM IVPB 100 ML IV SCH ×3 (03:47→21:07)
[2019-03-02 05:00] VITALS: BP 137/73
[2019-03-02] MEDS: hydrALAZINE HCL 25 MG TAB NG SCH ×3 (05:52→22:23)
[2019-03-02 06:28] LABS: Basophils # (auto) 0 uL; Eosinophils # (auto) 0.1 uL
[2019-03-02 06:33] LABS: Basophils % (auto) 0.3 % (0.0-2.0); Eosinophils % (auto) 1.1 % (0.0-7.0); Hematocrit 34.7 % (41.0-53.0); Lymphocytes # (auto) 0.7 uL; Lymphocytes % (auto) 6.4 % (10.0-50.0); Mean Corpuscular Hemoglobin 34.4 pg (28.0-32.0); Mean Corpuscular Hgb Conc. 34.5 g/dL (32.0-36.0); Mean Corpuscular Volume 99.7 fL (80.0-100.0); Monocytes # (auto) 1.1 uL; Monocytes % (auto) 10.2 % (0.0-12.0); Neutrophils # (auto) 8.5 uL; Platelet Count (auto) 246 10^3/uL (140-450); Red Blood Cells 3.48 10^6/uL (4.5-5.90); Red Cell Distribution Width 12.4 % (11.8-14.3); White Blood Cell 10.4 10^3/uL (4.4-10.8)
[2019-03-02 07:00] LABS: BUN/Creatinine Ratio 21.6; Calcium 8.7 mg/dL (8.5-10.1); Potassium 4.3 mmol/L (3.5-5.1)
[2019-03-02] MEDS: LEVOTHYROXINE SODIUM 25 MCG TAB PO SCH (07:06)
[2019-03-02] MEDS: LEVOTHYROXINE SODIUM 112 MCG TAB PO SCH (07:06)
[2019-03-02 08:00] VITALS: BP 124/96
[2019-03-02 09:00] VITALS: BP 124/96
[2019-03-02] MEDS: Ensure Enlive Chocolate 8oz Bottle PO SCH ×2 (09:44→17:11)
--- NOTE | 2019-03-02 10:47 | NUR ---
Nutrition Follow-Up Notes Wt.: 74.4 kg; no weight changes since previous assessment Pt unable to answer nutrition related questions; hx Alzheimer's/Dementia and asleep during visit. PO 75-100% x 3 days, tolerating diet well at this time without reported GI distress. Receives Ensure Enlive BID w/meals. Est. Needs BW [id number] kcal (25-30 kcal/kgBW), 75-90 gms pro (1.0-1.2 gms/kgBW). Will continue to monitor pertinent labs and reassess nutrient need prn Labs: pertinent labs today wnl except for BG 112H, ALB 2.3L Skin: Eb scale 12, high risk, left knee scab per city plant supervisor. Pls refer to latest fiber technician's notes for further details re: tx plans. GI: Pt had 3x BM yesterday per city plant supervisor. PES: Increased nutrient needs r/t current/chronic medical/nutritional status aeb 92% IBW, BMI 22.2 kg/m2, decreased muscle mass, mod hypoalbuminemia (ongoing) Altered nutrition related lab values r/t current/chronic medical condition aeb hyperchloremia, mod hypoalbuminemia (ongoing) Will continue to monitor PO intake, skin status, pertinent labs and weight trend. F/u in 3 to 5 days. Rec.: 1.) If Albumin continues trending down, consider Prostat 1 pkt BID. 2.) Consider daily MVI with minerals and Vit C 500 mgs BID prn. 3.) Continue close supervision during meals. 4.) Refer pt to RD for further nutrition education and weight monitoring upon discharge. 5.) Continue current plan of care.
[2019-03-02] MEDS: CITALOPRAM HYDROBR 20 MG TAB NG SCH (10:49)
[2019-03-02] MEDS: LEVETIRACETAM INJ 500 MG in D5W 5% 100 ML IV SCH ×2 (10:49→22:23)
[2019-03-02] MEDS: D5W/ SOD CHL 0.9%/KCL 20MEQ 1,000 ML IV SCH (10:49)
[2019-03-02] MEDS: amLODIPine BESYLATE 5 MG TAB NG SCH (10:52)
[2019-03-02] MEDS: LISINOPRIL 20 MG TAB PO SCH (10:53)
[2019-03-02 13:00] VITALS: BP 133/47
[2019-03-02 17:42] VITALS: BP 135/56
[2019-03-02 21:41] VITALS: BP 143/73
[2019-03-02] MEDS: QUEtiapine FUMARATE 25 MG TAB NG SCH (22:24)
[2019-03-02] MEDS: ATORVASTATIN 20 MG TAB NG SCH (22:24)
[2019-03-03] MEDS: ALBUTEROL SULF 2.5 MG/0.5ML(0.5%) NEB SOLN NEB SCH ×3 (00:28→12:42)
[2019-03-03] MEDS: guaiFENesin-DM 100/10mg/5ml SYR PO SCH ×5 (02:11→18:11)
[2019-03-03] MEDS: MEROPENEM 1GM IVPB 100 ML IV SCH ×2 (04:05→12:09)
[2019-03-03 05:00] VITALS: BP 103/72
[2019-03-03] MEDS: hydrALAZINE HCL 25 MG TAB NG SCH ×2 (06:18→13:56)
[2019-03-03] MEDS: D5W/ SOD CHL 0.9%/KCL 20MEQ 1,000 ML IV SCH (06:37)
[2019-03-03] MEDS: LEVOTHYROXINE SODIUM 112 MCG TAB PO SCH (06:37)
[2019-03-03] MEDS: LEVOTHYROXINE SODIUM 25 MCG TAB PO SCH (06:37)
[2019-03-03] MEDS: Ensure Enlive Chocolate 8oz Bottle PO SCH ×2 (08:00→18:11)
--- NOTE | 2019-03-03 08:00 | NUR ---
RECEIVED PATIENT ALERT AND ORIENTED X1 TO SELF ONLY, ON SEIZURE PRECAUTION, NOT IN DISTRESS, CRACKLED SOUNDS IN BILATERAL LUNG LOBES, COUGHING AND DEEP BREATHING ENCOURAGED, ABLE TO CLEAR THOUGHT ONLY, RR=18, SR R=76 ON TELE MONITOR, NO S/S OF SOB OR CHEST PAIN NOTED, ABDOMEN SOFT WITH ACTIVE BS, LAST BM THIS MORNING REPORTED, INCONTINENT, SKIN INTACT WARM TO TOUCH, PROTECTIVE Z ALEX AND OPT FOAM ON SACRUM APPLIED, KEEP SKIN CLEAN AND DRY, POSITION CHANGE Q2 HOURS, LT. UPPER AND LOWER EXTREMITY WEAKNESS NOTED, RADIAL AND PEDAL PULSES PALPABLE, HEAD OF BED ELEVATED, BED ON LOW POSITION, RAILS UP X2, CALL LIGHT ON REACH, SITTER AT BED SIDE, PENDING SS PROCESS, WILL CONTINUE MONITORING.
[2019-03-03 09:00] VITALS: BP 101/59
[2019-03-03] MEDS: CITALOPRAM HYDROBR 20 MG TAB NG SCH (10:17)
[2019-03-03] MEDS: amLODIPine BESYLATE 5 MG TAB NG SCH (10:21)
[2019-03-03] MEDS: LISINOPRIL 20 MG TAB PO SCH (10:22)
[2019-03-03] MEDS: LEVETIRACETAM INJ 500 MG in D5W 5% 100 ML IV SCH (10:35)
--- NOTE | 2019-03-03 11:24 | NUR ---
Pt unable to sign appeal discharge form due to confusion.
--- NOTE | 2019-03-03 11:37 | NUR ---
NOT IN DISTRESS, RESTING ON BED, SITTER AT BED SIDE, WILL CONTINUE MONITORING.
--- NOTE | 2019-03-03 14:22 | NUR ---
PENDING D/C HOME WITH HOSPICE CARE, PENDING SS PROCESS, SS CONTACTED FOR FOLLOW UP, AT 1830 PM ESTIMATED SCHEDULE ASSOCIATE ATTORNEY TIME BY [facility] REPORTED, WILL CONTINUE MONITORING.
--- NOTE | 2019-03-03 14:39 | NUR ---
D/C Planning Per consult for hospices. Per Sade information and choice letter was given to Pt brother via phone. Pt family member requested [facility] hospices. Contacted [facility] Ph:) Fax:( [phone]) faxed medical records. Per Saundra from [facility] Pt has been accepted and an evaluation has been completed. Contacted [facility] transportation Ph:) spoke to [facility] [[email or web address] Advised Jordan from [facility] transport to arrange flower picker time at 18:30 via [employer]adira. Informed KARAN Banks. Addendum: 03/03/19 at 1446 by GREGOR BROWNING Amended: Links added.
[2019-03-03 17:03] VITALS: BP 128/67
--- NOTE | 2019-03-03 17:30 | NUR ---
[facility] CONTACTED ON [phone] FOR PIPE WRAPPING MACHINE OPERATOR TIME FOLLOW UP, WILL PICK PATIENT AT 1830 REPORTED, MARCI HOBSON WAS CONTACTED ON [phone] FOR UPDATE FOLLOW UP, SON IS AWARE AND UPDATED REPORTED, NOT IN DISTRESS, TOLERATED PROVIDED DINNER 100%.
--- NOTE | 2019-03-03 19:49 | NUR ---
D/C INSTRUCTION INFORMATIONS WERE GIVEN TO THE TRANSPIRATION PERSONAL, D/C IV SITE AND TELE MONITOR, TOLERATED WELL, NOT IN DISTRESS, DENIED PAIN, VS T=97.8 RR=18 SAT=96% P=65 LM=136/54, D/C ON GURNEY BY [facility] TOOK ALL BELONGINGS AND LEFT NOTHING.
== END 2019-03-03 18:45 | disposition hospice, home (50) | DRG 64 ==
LOC: WEST WING 17:20 → TELE-WESTW 02-24 18:55
PROVIDERS: ADMIT Internal Medicine; ATTEND Internal Medicine
DX: I61.3 Nontraumatic intracerebral hemorrhage in brain stem (principal); G93.41 Metabolic encephalopathy; I69.354 Hemiplegia and hemiparesis following cerebral infarction affecting left non-dominant side; E44.0 Moderate protein-calorie malnutrition; N39.0 Urinary tract infection, site not specified; G30.9 Alzheimer's disease, unspecified; E03.9 Hypothyroidism, unspecified; E78.5 Hyperlipidemia, unspecified; Z51.5 Encounter for palliative care; G40.909 Epilepsy, unspecified, not intractable, without status epilepticus; I12.9 Hypertensive chronic kidney disease with stage 1 through stage 4 chronic kidney disease, or unspecified chronic kidney disease; N18.3 Chronic kidney disease, stage 3 (moderate); I25.10 Atherosclerotic heart disease of native coronary artery without angina pectoris; N40.0 Benign prostatic hyperplasia without lower urinary tract symptoms; B96.20 Unspecified Escherichia coli [E. coli] as the cause of diseases classified elsewhere; Z68.22 Body mass index [BMI] 22.0-22.9, adult; I69.320 Aphasia following cerebral infarction
CPT/HCPCS: 36415; 71045; 80048; 80053; 81001; 84439; 84443; 84481; 85025; 85610; 85730; 86850; 86900; 86901; 87081; 87086; 87088; 87186; 92507; 92610; 93005; 94640; G0378; J0696; J2185; J2250; J7060